=== PATIENT | female | born 1955 | race African-American/Black ===

== ENCOUNTER 2023-05-07 03:06 | Day surgery (SDC) | payer MEDICARE, MEDICAID, SELFPAY ==
[2023-04-23 09:40] VITALS: BMI 31.1
--- NOTE | 2023-04-23 11:38 | PC.NURSE ---
Report to the Outpatient Waiting Room, entrance under the green pavilion located off [facility], at time _8:30AM on date __04/29/23 . Planned Procedure Time: __10:30AM . Time changes happen often and if your time is changed the preop area will call you the afternoon before. - You and your visitor will be asked to self-screen and do not enter if you have any COVID symptoms. - A mask is optional within the hospital at this time. Patients may have clear liquids (water, carbonated beverages, clear teas, apple juice) until 3 hours prior to surgery with a maximum of 20 ounces. - No food from midnight until time of surgery Take the following medications with a SIP of water the morning of surgery: ___SYMBICORT INHALER, AMLODIPINE, CARVEDILOL, GABAPENTIN, HYDROCODONE, AND ALBUTEROL INHALER NEEDED DO NOT STOP ANY OF YOUR OTHER PRESCRIPTION MEDICATIONS PRIOR TO SURGERY ?EXCEPT THE FOLLOWING Medications to discontinue per physician ___HOLD ALL VITAMINS/SUPPLEMENTS 3 DAYS PRE-OP PER ANESTHESIA____ Date to take last dose__04/25/23 Please no make-up, nail setswana, hairspray, perfume, deodorant, or body powder the day of surgery. No jewelry (including any body piercings) or valuables the day of surgery, leave them at home. Please take a shower or bath the night before, or the morning of, surgery with an antibacterial soap. Wear comfortable, loose fitting clothing. Children are encouraged to wear pajamas. - Jewelry must be removed prior to entering the operating room. Rings and piercings that are not removed may be cut off. - The hospital will not accept responsibility for valuables. - Please leave all valuables, including medications, at home the day of surgery. If you are going home after surgery, a licensed steam train driver must drive you home. - NO public transportation without another adult if you receive anesthesia. - We recommend that an adult stay with you for 24 hours following discharge. - We also recommend that you do not drive, make important decision, drink alcoholic beverages, or take any drugs that were not prescribed by your health care provider for at least 24 hours after your discharge time. Follow any additional instructions given to you from your surgeon. If you or anyone in your household have experienced Covid symptoms in the past week, please notify your surgeon or the nurse liaison at the phone number below for possible testing. Telephone instructions given to ___PATIENT and asked if any additional questions and then verbalized understanding. Patient advised to call surgeon office or pre surgery nurse liaison [phone] if any additional questions.
--- NOTE | 2023-05-02 08:21 | PC.NURSE ---
Report to the Outpatient Waiting Room, entrance under the green pavilion located off [facility], at time _1300 on date __05/07/23 . Planned Procedure Time: _1500 . Time changes happen often and if your time is changed the preop area will call you the afternoon before. - You and your visitor will be asked to self-screen and do not enter if you have any COVID symptoms. - A mask is optional within the hospital at this time. Patients may have clear liquids (water, carbonated beverages, clear teas, apple juice) until 3 hours prior to surgery with a maximum of 20 ounces. - No food from midnight until time of surgery - Infants may have breast milk until 4 hours before surgery, infant formula 6 hours prior to surgery. - Children will be allowed to drink immediately following surgery. If applicable, please bring a bottle or sippy cup to assist with drinking. Juice, water, soda, and popsicles are readily available. For infants on formula, please bring formula the day of surgery. Pacifiers are allowed. Take the following medications with a SIP of water the morning of surgery: ___AMLODIPINE,SYMBICORT INHALER,CARVEDILOL,GABAPENTIN, HYDROCODONE IF NEEDED,AND ALBUTEROL INHALER IF NEEDED DO NOT STOP ANY OF YOUR OTHER PRESCRIPTION MEDICATIONS PRIOR TO SURGERY ?EXCEPT THE FOLLOWING Medications to discontinue per physician __HOLD ALL VITAMINS/SUPPLEMENTS 3 DAYS PRE OP.LAST DOSE 05/03/23 Please no make-up, nail belarusian, hairspray, perfume, deodorant, or body powder the day of surgery. No jewelry (including any body piercings) or valuables the day of surgery, leave them at home. Please take a shower or bath the night before, or the morning of, surgery with an antibacterial soap. Wear comfortable, loose fitting clothing. Children are encouraged to wear pajamas. - Jewelry must be removed prior to entering the operating room. Rings and piercings that are not removed may be cut off. - The hospital will not accept responsibility for valuables. - Please leave all valuables, including medications, at home the day of surgery. If you are going home after surgery, a licensed truck driver flatbed must drive you home. - NO public transportation without another adult if you receive anesthesia. - We recommend that an adult stay with you for 24 hours following discharge. - We also recommend that you do not drive, make important decision, drink alcoholic beverages, or take any drugs that were not prescribed by your health care provider for at least 24 hours after your discharge time. For Pediatric surgeries, we recommend two adults accompany the child home. Follow any additional instructions given to you from your surgeon. If you or anyone in your household have experienced Covid symptoms in the past week, please notify your surgeon or the nurse liaison at the phone number below for possible testing. Telephone instructions given to _PATIENT and asked if any additional questions and then verbalized understanding. Patient advised to call surgeon office or pre surgery nurse liaison [phone] if any additional questions.
--- NOTE | 2023-05-02 08:23 | PC.NURSE ---
PT STATES NO CHANGE IN HEALTH HX SINCE LAST INTERVIEW ON 04/23/23
--- NOTE | ~2023-05-07 | XR_ITS ---
EXAMINATION: XR chest port-a-cath/central DATE: 05/07/2023 16:55 INDICATION: Port catheter placement TECHNIQUE: frontal view of the chest was obtained. COMPARISON: Chest CT dated 08/11/2019 FINDINGS: Right subclavian central venous port catheter with distal tip at the superior cavoatrial junction. In creased interstitial pattern in the bilateral lower lung zones. No pleural effusion or pneumothorax. Cardiomegaly. IMPRESSION: 1. Right subclavian central venous port catheter tip at the superior cavoatrial junction. 2. Cardiomegaly with increased interstitial pattern in the bilateral lower lung zones and would favor congestive heart failure related mild pulmonary edema over pneumonia. Reviewed, dictated and finalized at location A. IMPRESSION: 1. Right subclavian central venous port catheter tip at the superior cavoatrial junction. 2. Cardiomegaly with increased interstitial pattern in the bilateral lower lung zones and would favor congestive heart failure related mild pulmonary edema ov er pneumonia.
--- NOTE | ~2023-05-07 | XR_ITS ---
Portacatheter insertion TECHNIQUE: Fluoroscopy used during insertion of portacatheter performed by [Bernabe Munguia MD] o n 05/07/2023. 26 seconds of fluoroscopy. with 0 images captured. FINDINGS: Correlate with procedure note. IMPRESSION: Fluoroscopy used during insertion of portacatheter. No fluoroscopic images obtained. Reviewed, dictated and finalized at location L.
[2023-05-07 13:55] VITALS: BP 132/69; PULSE 71; RESP 18; TEMP 36.9; O2SAT 100
[2023-05-07 14:36] LABS: Basophils Percent Auto 0.3 % (0.2-1.2); Eosinophils Absolute Auto 0.2 K/mm3 (0-0.3); Eosinophils Percent Auto 3.9 % (0-4.4); Hemoglobin 9.8 g/dL (12.0-15.0); Immature Granulocyte Absolute 0.06 K/mm3 (0.00-0.031); Lymphocytes Absolute Auto 1.24 K/mm3 (0.9-3.2); Lymphocytes Percent Auto 20.2 % (18.3-44.2); Mean Corpuscular HGB Conc 32.7 g/dl (32-36); Mean Corpuscular Hemoglobin 28.4 pg (26-34); Mean Platelet Volume 10.3 fl (7.4-10.4); Monocytes Absolute Auto 0.6 K/mm3 (0.1-0.6); Monocytes Percent Auto 10.3 % (2.6-8.5); Neutrophils Percent Auto 64.3 % (45.5-73.1); Platelet Count Result 203 k/mm3 (150-375); Red Blood Count 3.45 M/mm3 (4.2-5.4); Red Cell Distribution Width 18.5 % (11.5-14.5); White Blood Count 6.1 K/mm3 (4.5-10.0)
[2023-05-07 14:47] LABS: Prothrombin Time 23.9 Seconds (11.1-14.7)
[2023-05-07 14:48] LABS: Partial Thromboplastin Time 23.1 SECONDS (22.3-36.8)
--- NOTE | 2023-05-07 15:32 | WPDANESEPPF ---
Anes - Initial Pre Proc Eval Procedure: Operation Date: 05/07/23 15:00 Proposed Procedures p Insertion Juan Cath - Bernabe Munguia MD Date/Time: 05/07/23 15:32 Surgeon: Bernabe Munguia MD Pre Op Diagnosis: multiple myeloma Patient Data Age: 68 Gender: F Height: 1.65 m Weight: 90.5 kg Last Vital Signs Temp 36.9 C 05/07/23 13:55 Pulse 71 05/07/23 13:55 Resp 18 05/07/23 13:55 BP 132/69 05/07/23 13:55 Pulse Ox 100 05/07/23 13:55 O2 Del Method Room Air 05/07/23 13:55 Allergies Allergy/AdvReac Type Severity Reaction Status Date / Time No Known Allergies Allergy Verified 05/07/23 14:04 Home Medications Medication Instructions Recorded Confirmed Type albuterol sulfate 90 mcg/actuation 2 puff inhalation Q4-5H PRN Dyspnea 04/23/23 05/07/23 History aerosol inhaler amlodipine 10 mg tablet 10 mg PO QAM 04/23/23 05/07/23 History baclofen 10 mg tablet 10 mg PO TID PRN Muscle Spasm 04/23/23 05/07/23 History budesonide-formoterol HFA 160 2 puff inhalation Q12H 04/23/23 05/07/23 History mcg-4.5 mcg/actuation aerosol inhaler (Symbicort) carvedilol 3.125 mg tablet 3.015 mg PO BID 04/23/23 05/07/23 History ferrous sulfate 325 mg (65 mg 325 mg PO DAILY 04/23/23 05/07/23 History iron) tablet (FeroSul) gabapentin 300 mg capsule 600 mg PO TID 04/23/23 05/07/23 History hydrocodone 5 mg-acetaminophen 325 1 tablet PO Q4-6H PRN Pain 04/23/23 05/07/23 History mg tablet hydroxyzine HCl 25 mg tablet 25 mg PO TID 04/23/23 05/07/23 History lenalidomide 25 mg capsule 25 mg PO DAILY 04/23/23 05/07/23 History (Revlimid) omeprazole 40 mg capsule,delayed 40 mg PO DAILY 04/23/23 05/07/23 History release sertraline 100 mg tablet 100 mg PO HS 04/23/23 05/07/23 History Laboratory Tests 05/07/23 14:18 WBC 6.1 K/mm3 (4.5-10.0) RBC 3.45 L M/mm3 (4.2-5.4) Hgb 9.8 L g/dL (12.0-15.0) Hct 30.0 L % (37.0-47.0) MCV 87.0 fl (80-100) MCH 28.4 pg (26-34) MCHC 32.7 g/dl (32-36) RDW 18.5 H % (11.5-14.5) Plt Count 203 k/mm3 (150-375) MPV 10.3 fl (7.4-10.4) Immature Gran % (Auto) 1.0 H % (0-0.5) Neut % (Auto) 64.3 % (45.5-73.1) Lymph % (Auto) 20.2 % (18.3-44.2) Shasta % (Auto) 10.3 H % (2.6-8.5) Eos % (Auto) 3.9 % (0-4.4) Baso % (Auto) 0.3 % (0.2-1.2) Lymph # (Auto) 1.24 K/mm3 (0.9-3.2) Shasta # (Auto) 0.6 K/mm3 (0.1-0.6) Eos # (Auto) 0.2 K/mm3 (0-0.3) Baso # (Auto) 0.0 K/mm3 (0.0-0.1) Abs Immat Gran (auto) 0.06 H K/mm3 (0.00-0.031) Absolute Neuts (auto) 4.0 K/mm3 (1.3-6.7) Absolute Nucleated RBC 0.0 K/mm3 (0.0-0.012) Nucleated RBC % 0.0 % (0.0-0.2) PT 23.9 H Seconds (11.1-14.7) INR 2.0 APTT 23.1 SECONDS (22.3-36.8) Patient hx anesthesia problems: none Family hx anesthesia problems: none Results Review: All pre-operative results and documents have been reviewed as part of the pre-operative evaluation. [facility] Past Medical History Medical History (Updated 05/07/23 @ 15:33 by Jomar Medina DO) COPD (chronic obstructive pulmonary disease) GERD (gastroesophageal reflux disease) History of heart attack Hyperlipidemia Hypertension Multiple myeloma ARLENE (obstructive sleep apnea) CPAP Social History Social History Smoking packs per day: 0.5 Smoking cigarettes per day: 10.0 Years smoked: 43 Smoking pack-years: 21.50 Smoking status: Former smoker Tobacco type: cigarettes Smoking end date: 01/28/23 Substance use: never Living arrangements: with family Additional living arrangements comments: SON Spiritual care concerns: No Anes - Eval Final PreProcedure Day of Procedure 05/07/23 15:32 Patient weight: obese Heart: regular rate and rhythm Lungs: clear to auscultation Airway: Mallampati scale class II Neurological: alert and oriented Last oral intake: >/= 8 hours ASA classification: III
--- NOTE | 2023-05-07 15:42 | PM.IMHP ---
H&P: HPI History of Present Illness Date/Time: 05/07/23 15:42 Chief Complaint: Need for port placement PMFSH Past Medical History Medical History COPD (chronic obstructive pulmonary disease) GERD (gastroesophageal reflux disease) History of heart attack Hyperlipidemia Hypertension Multiple myeloma ARLENE (obstructive sleep apnea) CPAP Social History Social History Smoking packs per day: 0.5 Smoking cigarettes per day: 10.0 Years smoked: 43 Smoking pack-years: 21.50 Smoking status: Former smoker Tobacco type: cigarettes Smoking end date: 01/28/23 Substance use: never Living arrangements: with family Additional living arrangements comments: SON Spiritual care concerns: No Meds Home Medications and Allergies Home Medications Medication Instructions Recorded Confirmed Type albuterol sulfate 90 mcg/actuation 2 puff inhalation Q4-5H PRN Dyspnea 04/23/23 05/07/23 History aerosol inhaler amlodipine 10 mg tablet 10 mg PO QAM 04/23/23 05/07/23 History baclofen 10 mg tablet 10 mg PO TID PRN Muscle Spasm 04/23/23 05/07/23 History budesonide-formoterol HFA 160 2 puff inhalation Q12H 04/23/23 05/07/23 History mcg-4.5 mcg/actuation aerosol inhaler (Symbicort) carvedilol 3.125 mg tablet 3.015 mg PO BID 04/23/23 05/07/23 History ferrous sulfate 325 mg (65 mg 325 mg PO DAILY 04/23/23 05/07/23 History iron) tablet (FeroSul) gabapentin 300 mg capsule 600 mg PO TID 04/23/23 05/07/23 History hydrocodone 5 mg-acetaminophen 325 1 tablet PO Q4-6H PRN Pain 04/23/23 05/07/23 History mg tablet hydroxyzine HCl 25 mg tablet 25 mg PO TID 04/23/23 05/07/23 History lenalidomide 25 mg capsule 25 mg PO DAILY 04/23/23 05/07/23 History (Revlimid) omeprazole 40 mg capsule,delayed 40 mg PO DAILY 04/23/23 05/07/23 History release sertraline 100 mg tablet 100 mg PO HS 04/23/23 05/07/23 History Allergies Allergy/AdvReac Type Severity Reaction Status Date / Time No Known Allergies Allergy Verified 05/07/23 14:04 Vital Signs Vital Signs - 24 hr 05/07/23 13:55 Temperature 36.9 C Pulse Rate 71 Respiratory Rate 18 Blood Pressure 132/69 Pulse Oximetry 100 Oxygen Delivery Room Air H&P: Results Labs Labs: Short CBC 05/07/23 Range/Units 14:18 WBC 6.1 (4.5-10.0) K/mm3 Hgb 9.8 L (12.0-15.0) g/dL Hct 30.0 L (37.0-47.0) % Plt Count 203 (150-375) k/mm3 Assessment and Plan Assessment and plan (1) Multiple myeloma in relapse: Code(s): C90.02 - Multiple myeloma in relapse Status: Acute Assessment and Plan: Pt presents of portacatheter placement. Will proceed to OR for port placement today. Risks of bleeding and need for blood transfusion and iatrogenic pneumothorax needing chest tube placement discussed with pt and she wishes to proceed.
--- NOTE | 2023-05-07 15:46 | WPDHPUPDATE1 ---
History and Physical Update Update Date/Time: 05/07/23 15:46 History and Physical has been reviewed, including an updated exam of the patient. There are NO changes in the patient's condition. Risks, benefits, and alternatives have been discussed and questions answered. Patient agrees to proceed with procedure.
[2023-05-07] MEDS: ceFAZolin 2 GM/D5W 50 ML 2 GM/50 ML BAG IVPB (16:19)
[2023-05-07 16:43] VITALS: BP 108/59; PULSE 78; RESP 12; O2SAT 91
[2023-05-07] MEDS: LACTATED RINGERS 1,000 ML 30 ML IV CONT (16:43)
[2023-05-07 17:15] VITALS: BP 121/75; PULSE 72; RESP 16; O2SAT 96
--- NOTE | 2023-05-07 17:24 | W.PM.PROC2 ---
Procedure Note - Detailed Date of Procedure 05/07/23 Pre-op Diagnosis multiple myeloma Post-op Diagnosis Same Procedure Performed Placement of right subclavian vein single-lumen port a catheter with intraoperative fluoroscopy. Surgeon Bernabe Munguia MD Property And Equipment Clerk Edna Kuo, [place], [facility] [facility] Anesthesia MAC Indications patient is a 68-year-old female who has multiple myeloma and is set to undergo chemotherapy treatments. She presents now for placement of a taylor catheter to for the chemotherapy treatments. Findings None significant. Description of Procedure After informed consent was obtained patient was brought to the operating room where she was placed supine position and then IV sedation was administered by anesthesia. The bilateral upper anterior neck and chest was then prepped and draped in usual sterile fashion. A time-out was then performed correctly identifying the patient as well as the procedure to be performed. She was given perioperative IV antibiotics. I then anesthetized the area just below the medial 3rd of the right clavicle in the right upper anterior chest. This was done with 0.5% Marcaine mixed with 1% lidocaine in a 50 50 mixture with some epinephrine. With the patient head-down Trendelenburg position and then made a small transverse incision just below the medial 3rd of the right clavicle. Dissection was then carried down through the subcutaneous tissue electrocautery down to the anterior pectoralis fascia. With blunt finger electrocautery dissection I created the subcutaneous port pocket just below the incision. I then proceeded to advance an 18gauge spinal needle the incision just underneath the medial 3rd of the right clavicle to percutaneously cannulate the right subclavian vein on the 1st pass on a difficulty. There was prompt return of dark venous appearing blood. I then advanced the guidewire through the needle into the right subclavian vein subsequently down into the superior vena cava. Intraoperative fluoroscopy was then used to visualize the guidewire which was in the proper position. I then proceeded to advanced a dilator breakaway sheath over the guidewire. The dilator and guidewire were removed leaving the sheath in place. I then advanced the 9.6 Turkmen single-lumen catheter through the sheath into the right subclavian vein and down into the right atrium of the heart. The sheath was then torn away leaving the catheter in place. Once again I utilized intraoperative fluoroscopy to pull back on the catheter until the tip was at the junction of the superior vena cava and the right atrium. I then cut the catheter to the appropriate length the skin level and attached to the Smart Port. The port was then secured in the subcutaneous port pocket in 3 places utilizing 3-0 Prolene suture. I then accessed the port and it bg back blood easily and was flushed with heparinized saline solution. I then closed the incision utilizing interrupted 3-0 Vicryl sutures in the subcutaneous tissues. The skin edges were then approximated utilizing a running subcuticular 4-0 Monocryl suture. Then accessed the port percutaneously and again it bg back blood easily and was flushed with 5000units of IV heparin. The incisions were then cleaned the skin glue was applied. The patient tolerated the procedure well no complications. All sponges, needles, and instrument counts were correct at the end procedure. EBL was _10__cc. The patient was awakened and taken to recovery in stable and satisfactory condition. Implants 9.6 Turkmen single-lumen catheter attached to Smart port right subclavian vein. Estimated Blood Loss -10.0 Drains No Packing No Pathology None sent Complications No immediate complications Condition Stable Disposition PACU [facility] Billing Surgery - Charge Forward: Surgery Billing
== END 2023-05-07 17:43 | disposition home or self-care (01) ==
PROVIDERS: Visit Provider Surgery
PROC: (CPT 36561; principal; 2023-05-07 15:00)
DX: C90.02 Multiple myeloma in relapse (principal); J44.9 Chronic obstructive pulmonary disease, unspecified; I10 Essential (primary) hypertension; E78.5 Hyperlipidemia, unspecified; I25.2 Old myocardial infarction; K21.9 Gastro-esophageal reflux disease without esophagitis; G47.33 Obstructive sleep apnea (adult) (pediatric); Z87.891 Personal history of nicotine dependence; E66.9 Obesity, unspecified; Z68.33 Body mass index [BMI] 33.0-33.9, adult; Z79.51 Long term (current) use of inhaled steroids; Z79.61 Long term (current) use of immunomodulator; Z79.891 Long term (current) use of opiate analgesic
CPT/HCPCS: 36561; 36415; 77001; 85025; 85610; 85730; C1788; J0690; J1644; J2250; J2704; J3010; J7030; J7120

== ENCOUNTER 2023-06-04 16:17 | Outpatient (CLI) | payer MEDICARE, MEDICAID, SELFPAY ==
--- NOTE | ~2023-06-04 | US_ITS ---
US venous doppler [facility] DATE: 06/04/2023 18:26 INDICATION: Left lower extremity swelling TECHNIQUE: Real-time and color flow imaging and Doppler analysis of the veins of the left lower extre mity COMPARISON: None FINDINGS: The left greater saphenous vein is patent. There is spontaneous and phasic flow and normal augmentation and color flow signal and normal compression of the deep veins of the left lower extremi ty. IMPRESSION: No evidence of deep venous thrombosis of left lower extremity Reviewed, dictated and finalized at Location A. Reviewed, dictated and finalized at location A.
== END 2023-06-04 16:18 | disposition home or self-care (01) ==
PROVIDERS: Visit Provider Internal Medicine Hematology & Oncology
DX: M79.89 Other specified soft tissue disorders (principal)
CPT/HCPCS: 93971; 96375; 96401; 96413; 96415; A9270; J1200; J2930; J7040; J9041; J9145

== ENCOUNTER 2023-11-22 20:27 | Emergency (ER) | payer MEDICARE, MEDICAID, SELFPAY ==
--- NOTE | ~2023-11-22 | XR_ITS ---
EXAMINATION: XR chest 2V DATE: 11/22/2023 23:29 INDICATION: Fever. TECHNIQUE: Frontal and lateral views of the chest were obtained. COMPARISON: Chest single view 05/07/2023, chest CT 08/11/2019 FINDINGS: There are airspace opacities in left mid and lower lung zones. No pleural effusion or pneum othorax. The heart size is normal. There is a right subclavian port with tip at superior cavoatrial j unction. There are vertebral body fractures in lumbar spine, likely chronic. IMPRESSION: 1. Airspace opacities in left mid and lower lung zones, consistent with atelectasis versus pneumonia. Reviewed, dictated and finalized at location E. INSPECTOR IMPRESSION: 1. Airspace opacities in left mid and lower lung zones, consistent with atelect asis versus pneumonia.
[2023-11-22 20:42] VITALS: BP 107/83; PULSE 78; RESP 17; TEMP 37.2; O2SAT 95
[2023-11-22 21:36] LABS: Influenza A QL RT-PCR Negative (Negative); Influenza B QL RT-PCR Negative (Negative); RSV RNA, RT-PCR Negative (Negative); SARS-CoV-2 RNA PCR Negative (Negative)
[2023-11-22 23:25] LABS: Basophils Absolute Auto 0.1 K/mm3 (0.0-0.1); Basophils Percent Auto 0.4 % (0.2-1.2); Eosinophils Absolute Auto 0.1 K/mm3 (0-0.3); Eosinophils Percent Auto 0.3 % (0-4.4); Hematocrit 26.6 % (37.0-47.0); Hemoglobin 9.1 g/dL (12.0-15.0); Immature Granulocyte Absolute 0.15 K/mm3 (0.00-0.031); Immature Granulocyte Percent A 0.7 % (0-0.5); Lymphocytes Absolute Auto 2.77 K/mm3 (0.9-3.2); Mean Corpuscular HGB Conc 34.2 g/dl (32-36); Mean Corpuscular Hemoglobin 29.4 pg (26-34); Mean Corpuscular Volume 85.8 fl (80-100); Mean Platelet Volume 9.6 fl (7.4-10.4); Monocytes Absolute Auto 2.9 K/mm3 (0.1-0.6); Monocytes Percent Auto 12.6 % (2.6-8.5); Neutrophils Absolute Auto 17.1 K/mm3 (1.3-6.7); Platelet Count Result 215 k/mm3 (150-375); White Blood Count 23.1 K/mm3 (4.5-10.0)
[2023-11-22 23:36] LABS: INR 1.9; Partial Thromboplastin Time 27.5 SECONDS (22.3-36.8); Prothrombin Time 22.7 Seconds (11.1-14.7)
[2023-11-22 23:37] LABS: Alanine Aminotransferase 17 U/L (6-35); Albumin Level 3.7 g/dL (3.5-5.1); Alkaline Phosphatase 83 U/L (38-126); Anion Gap 5 mmol/L (8-16); Aspartate Amino Transferase 21 U/L (14-36); Bilirubin,Total 0.5 mg/dL (0.2-1.3); Blood Urea Nitrogen 12 mg/dL (7-17); CRP 4.5 mg/dL (<1.0); Calcium 8.5 mg/dL (8.4-10.2); Carbon Dioxide 24 mmol/L (22-30); Chloride 103 mmol/L (98-107); Estimated CRCL calculation 71 ml/min; Estimated Glomerular Filt Rate > 60; Glucose 133 mg/dL (65-110); Potassium 2.9 mmol/L (3.4-5.0); Sodium 132 mmol/L (137-145)
[2023-11-23] VITALS (16 sets, daily range): BP systolic 102–128; BP diastolic 65–80; PULSE 89–109; RESP 15–20; TEMP 36.6–36.8; O2SAT 97–100
[2023-11-23 00:25] LABS: Lactic Acid Reflex 1.1 mmol/L (0.7-2.0)
--- NOTE | 2023-11-23 00:25 | ED.URI ---
HPI - URI/Sore Throat General Chief Complaint: Upper Respiratory Infection <Tiera Moura PA-C - Last Filed: 11/23/23 17:21> Stated Complaint: chills, fever, body aches, bone marrow transplant <Tiera Moura PA-C - Last Filed: 11/23/23 17:21> Time Seen by Provider: 11/22/23 22:49 <JANA Miguel Last Filed: 11/23/23 17:21> Source: patient <JANA Miguel Last Filed: 11/23/23 17:21> Mode of arrival: ambulatory <JANA Miguel Last Filed: 11/23/23 17:21> Limitations: no limitations <JANA Miguel Last Filed: 11/23/23 17:21> History of Present Illness HPI Narrative: This is a 68 year old female that presents to the ER for fevers. Reports associated sore throat, cough, congestion and shortness of breath. Denies chest pain, abdominal pain, vomiting, dysuria, or hematuria. <JANA Miguel Last Filed: 11/23/23 17:21> Related Data Home Medications: Home Medications Medication Instructions Recorded Confirmed albuterol sulfate 90 mcg/actuation 2 puff inhalation Q4-5H PRN Dyspnea 04/23/23 09/17/23 aerosol inhaler amlodipine 10 mg tablet 10 mg PO QAM 04/23/23 09/17/23 baclofen 10 mg tablet 10 mg PO TID PRN Muscle Spasm 04/23/23 09/17/23 budesonide-formoterol HFA 160 2 puff inhalation Q12H 04/23/23 09/17/23 mcg-4.5 mcg/actuation aerosol inhaler (Symbicort) carvedilol 3.125 mg tablet 3.015 mg PO BID 04/23/23 09/17/23 ferrous sulfate 325 mg (65 mg 325 mg PO DAILY 04/23/23 09/17/23 iron) tablet (FeroSul) gabapentin 300 mg capsule 600 mg PO TID 04/23/23 09/17/23 hydroxyzine HCl 25 mg tablet 25 mg PO TID 04/23/23 09/17/23 lenalidomide 25 mg capsule 25 mg PO DAILY 04/23/23 09/17/23 (Revlimid) omeprazole 40 mg capsule,delayed 40 mg PO DAILY 04/23/23 09/17/23 release sertraline 100 mg tablet 100 mg PO HS 04/23/23 09/17/23 dexamethasone 4 mg tablet 40 mg PO WEEKLY 06/04/23 09/17/23 hydrocodone 10 mg-acetaminophen 1 tablet PO Q6H PRN Pain 08/06/23 09/17/23 325 mg tablet <Tiera Moura PA-C - Last Filed: 11/23/23 17:21> Allergies/Adverse Reactions: Allergies Allergy/AdvReac Type Severity Reaction Status Date / Time No Known Allergies Allergy Verified 09/17/23 12:22 <Tiera Moura PA-C - Last Filed: 11/23/23 17:21> Review of Systems Review of Systems: CONSTITUTIONAL: Reports fever, chills ENT: Reports rhinorrhea, congestion, sore throat CARDIOVASCULAR: Denies chest pain, or edema. RESPIRATORY: Reports cough and dyspnea. GASTROINTESTINAL: Denies abdominal pain, nausea, vomiting GENITOURINARY: Denies dysuria <Tiera Moura PA-C - Last Filed: 11/23/23 17:21> All systems reviewed & are unremarkable except as noted in HPI and below <Tiera Moura PA-C - Last Filed: 11/23/23 17:21> [facility] Past Medical History Medical History: Medical History COPD (chronic obstructive pulmonary disease) GERD (gastroesophageal reflux disease) History of heart attack Hyperlipidemia Hypertension Multiple myeloma ARLENE (obstructive sleep apnea) CPAP <Tiera Moura PA-C - Last Filed: 11/23/23 17:21> Social History Social History: Social History Smoking packs per day: 0.5 Smoking cigarettes per day: 10.0 Years smoked: 43 Smoking pack-years: 21.50 Smoking status: Former smoker Tobacco type: cigarettes Smoking end date: 01/28/23 Substance use: never Living arrangements: with family Additional living arrangements comments: SON Spiritual care concerns: No <Tiera Moura PA-C - Last Filed: 11/23/23 17:21> Exam Narrative: GENERAL: Well-appearing, well-nourished, and in no acute distress. HEAD: Normocephalic, atraumatic. EYES: EOMI. ENT: Nares clear, no rhinorrhea or epistaxis. Mucous membranes moist. Oropharynx without tonsillar hypertrophy exudate or other lesions. Bilat
--- NOTE | 2023-11-23 00:28 | PM.IMHP ---
H&P: HPI History of Present Illness Date/Time: 11/23/23 00:28 [facility] Past Medical History Medical History COPD (chronic obstructive pulmonary disease) GERD (gastroesophageal reflux disease) History of heart attack Hyperlipidemia Hypertension Multiple myeloma ARLENE (obstructive sleep apnea) CPAP Social History Social History Smoking packs per day: 0.5 Smoking cigarettes per day: 10.0 Years smoked: 43 Smoking pack-years: 21.50 Smoking status: Former smoker Tobacco type: cigarettes Smoking end date: 01/28/23 Substance use: never Living arrangements: with family Additional living arrangements comments: SON Spiritual care concerns: No Meds Home Medications and Allergies Home Medications Medication Instructions Recorded Confirmed Type albuterol sulfate 90 mcg/actuation 2 puff inhalation Q4-5H PRN Dyspnea 04/23/23 09/17/23 History aerosol inhaler amlodipine 10 mg tablet 10 mg PO QAM 04/23/23 09/17/23 History baclofen 10 mg tablet 10 mg PO TID PRN Muscle Spasm 04/23/23 09/17/23 History budesonide-formoterol HFA 160 2 puff inhalation Q12H 04/23/23 09/17/23 History mcg-4.5 mcg/actuation aerosol inhaler (Symbicort) carvedilol 3.125 mg tablet 3.015 mg PO BID 04/23/23 09/17/23 History ferrous sulfate 325 mg (65 mg 325 mg PO DAILY 04/23/23 09/17/23 History iron) tablet (FeroSul) gabapentin 300 mg capsule 600 mg PO TID 04/23/23 09/17/23 History hydroxyzine HCl 25 mg tablet 25 mg PO TID 04/23/23 09/17/23 History lenalidomide 25 mg capsule 25 mg PO DAILY 04/23/23 09/17/23 History (Revlimid) omeprazole 40 mg capsule,delayed 40 mg PO DAILY 04/23/23 09/17/23 History release sertraline 100 mg tablet 100 mg PO HS 04/23/23 09/17/23 History dexamethasone 4 mg tablet 40 mg PO WEEKLY 06/04/23 09/17/23 History hydrocodone 10 mg-acetaminophen 1 tablet PO Q6H PRN Pain 08/06/23 09/17/23 History 325 mg tablet Allergies Allergy/AdvReac Type Severity Reaction Status Date / Time No Known Allergies Allergy Verified 09/17/23 12:22 Vital Signs Vital Signs - 24 hr 11/22/23 20:42 Temperature 98.9 F Pulse Rate 78 Respiratory Rate 17 Blood Pressure 107/83 Pulse Oximetry 95 Oxygen Delivery Room Air H&P: Results Labs Labs: Short CBC 11/22/23 Range/Units 23:17 WBC 23.1 H (4.5-10.0) K/mm3 Hgb 9.1 L (12.0-15.0) g/dL Hct 26.6 L (37.0-47.0) % Plt Count 215 (150-375) k/mm3 BMP 11/22/23 23:17 Sodium 132 L Potassium 2.9 L Chloride 103 Carbon Dioxide 24 BUN 12 Creatinine 0.70 Glucose 133 H Calcium 8.5 Liver Function 11/22/23 Range/Units 23:17 Total Bilirubin 0.5 (0.2-1.3) mg/dL AST 21 (14-36) U/L ALT 17 (6-35) U/L Alkaline Phosphatase 83 (38-126) U/L Albumin 3.7 (3.5-5.1) g/dL
--- NOTE | 2023-11-23 00:35 | ECG_ITS ---
Measurements Intervals [place] Rate: 104 P: 38 GA: 141 QRS: -82 QRSD: 136 T: 18 QT: 382 QTc: 503 Interpretive Statements SINUS TACHYCARDIA RIGHT BUNDLE BRANCH BLOCK LEFT ANTERIOR FASCICULAR BLOCK ABNORMAL ECG NO PREVIOUS ECG AVAILABLE FOR COMPARISON Electronically Signed On 11-23-2023 7:35:58 [employer] EVENT by Donald Noble D.O.
[2023-11-23] MEDS: AZITHROMYCIN 500 MG/NS 250 ML 500 MG/250 ML BAG 250 MG IVPB (01:33)
[2023-11-23 01:42] LABS: Magnesium 1.2 mg/dL (1.6-2.3)
[2023-11-23 02:24] LABS: Appearance Urine Cloudy (Clear); Bacteria Urine None Seen /hpf; Bilirubin Urine Negative (Negative); Blood Urine Negative (Negative); Color Urine Yellow (Yellow); Glucose Urine UA Negative (Negative); Ketones Urine Negative (Negative); Leukocyte Esterase Ur 3+ LEU/UL (Negative); Nitrate Urine Negative (Negative); Non Pathogenic Casts 0-2; Protein Urine Negative (Negative); RBC Urine 0-2 /hpf (0-2); Specific Grav Ur 1.009 (1.001-1.035); Squamous Epithelial Cell Urine Few /hpf (Few); Urobilinogen Urine 0.2 mg/dL (<2.0); WBC Urine 51-100 /hpf
[2023-11-23 02:25] LABS: Add Urine Microscopic? YES
[2023-11-23] MEDS: POTASSIUM CHLORIDE INJ 40 MEQ in SODIUM CHLORIDE 0.9% IV 500 ML 130 MEQ IVPB (03:00)
[2023-11-23] MEDS: CENTRAL LINE FLUSH 10 ML IV PUSH ×2 (06:33→15:50)
[2023-11-23] MEDS: MAGNESIUM SULF 2 GM/WATER 50ML 2 GM/50 ML BAG IVPB (07:05)
--- NOTE | 2023-11-23 07:15 | PC.NURSE ---
Upon pt arrival to ED room pt expressed that she wished to have her port-a-cath accessed instead of peripheral IV access. Pt was asked at 0545 if an IV could be placed to be able to administer more than one medication at a time. Pt agreed and Dr. Culp placed an ultrasound IV in the left forearm.
[2023-11-23] MEDS: CEFEPIME 2 GM/NS 50 ML 2 GM/50 ML BAG IVPB ×2 (08:29→15:49)
[2023-11-23] MEDS: HEPARIN SODIUM LOCK FLUSH 500 UNITS/5 ML SYRINGE IV PUSH (08:31)
--- NOTE | 2023-11-23 08:47 | PC.NURSE ---
Ruthann from [place] called for update. No beds available today and most likely not tomorrow either
[2023-11-23 15:53] LABS: Basophils Absolute Auto 0.1 K/mm3 (0.0-0.1); Basophils Percent Auto 0.4 % (0.2-1.2); Eosinophils Absolute Auto 0.1 K/mm3 (0-0.3); Eosinophils Percent Auto 0.7 % (0-4.4); Hematocrit 26.9 % (37.0-47.0); Hemoglobin 9.2 g/dL (12.0-15.0); Immature Granulocyte Percent A 0.6 % (0-0.5); Lymphocytes Absolute Auto 1.92 K/mm3 (0.9-3.2); Lymphocytes Percent Auto 10.6 % (18.3-44.2); Mean Corpuscular HGB Conc 34.2 g/dl (32-36); Mean Corpuscular Hemoglobin 29.5 pg (26-34); Mean Corpuscular Volume 86.2 fl (80-100); Mean Platelet Volume 9.7 fl (7.4-10.4); Monocytes Absolute Auto 1.8 K/mm3 (0.1-0.6); Monocytes Percent Auto 10.1 % (2.6-8.5); Neutrophils Percent Auto 77.6 % (45.5-73.1); Platelet Count Result 224 k/mm3 (150-375); Red Blood Count 3.12 M/mm3 (4.2-5.4); Red Cell Distribution Width 16.3 % (11.5-14.5); White Blood Count 18.1 K/mm3 (4.5-10.0)
[2023-11-23 16:06] LABS: Alanine Aminotransferase 15 U/L (6-35); Albumin Level 3.7 g/dL (3.5-5.1); Alkaline Phosphatase 85 U/L (38-126); Anion Gap 4 mmol/L (8-16); Aspartate Amino Transferase 20 U/L (14-36); Bilirubin,Total 0.4 mg/dL (0.2-1.3); Blood Urea Nitrogen 10 mg/dL (7-17); Calcium 8.7 mg/dL (8.4-10.2); Carbon Dioxide 25 mmol/L (22-30); Chloride 108 mmol/L (98-107); Estimated CRCL calculation 81 ml/min; Estimated Glomerular Filt Rate > 60; Glucose 105 mg/dL (65-110); Potassium 3.5 mmol/L (3.4-5.0); Sodium 137 mmol/L (137-145)
--- NOTE | 2023-11-23 17:03 | PC.NURSE ---
ordered dinner tray at 1700
[2023-11-23 17:05] LABS: Magnesium 2.4 mg/dL (1.6-2.3)
[2023-11-23 17:25] LABS: CRP 14.4 mg/dL (<1.0)
== END 2023-11-23 21:26 | disposition short-term general hospital (02) ==
PROVIDERS: Emergency Medicine; Physician Assistant; Emergency Provider Emergency Medicine
DX: J18.9 Pneumonia, unspecified organism (principal); E87.6 Hypokalemia; E83.42 Hypomagnesemia; Z20.822 Contact with and (suspected) exposure to COVID-19; C90.00 Multiple myeloma not having achieved remission; Z94.81 Bone marrow transplant status; J44.9 Chronic obstructive pulmonary disease, unspecified; I25.2 Old myocardial infarction; I10 Essential (primary) hypertension; E78.5 Hyperlipidemia, unspecified; G47.33 Obstructive sleep apnea (adult) (pediatric); K21.9 Gastro-esophageal reflux disease without esophagitis; Z87.891 Personal history of nicotine dependence; R00.0 Tachycardia, unspecified; I45.2 Bifascicular block
CPT/HCPCS: 36415; 71046; 80053; 81001; 83605; 83735; 85025; 85610; 85730; 86140; 87040; 87086; 87088; 87637; 93005; 96361; 96365; 96366; 96367; 99285; J0456; J0692; J0696; J3475; J3480; J7040

== ENCOUNTER 2025-05-19 13:48 | Emergency (ER) | payer MEDICARE, MEDICAID, SELFPAY ==
[2025-05-19] VITALS (13 sets, daily range): BP systolic 121–135; BP diastolic 48–82; PULSE 55–67; RESP 12–21; TEMP 36.7; O2SAT 96–100
--- NOTE | ~2025-05-19 | XR_ITS ---
EXAMINATION: XR chest 2V DATE: 05/19/2025 14:37 INDICATION: Shortness of breath TECHNIQUE: PA and lateral views of the chest were obtained. COMPARISON: Chest radiograph dated 11/22/2023 FINDINGS: Unchanged elevation the left hemidiaphragm. There is interstitial and mild airspace opacity left lower lung zone. Right lung remains clear. No pleural effusion or pneumothorax. Heart size is normal. Tortuous thoracic aorta. Right subclavian central venous port catheter with distal tip at the caudal superior vena cava. Mild lumbar levoscoliosis with chronic compression fractures at L1 and L2. IMPRESSION: 1. Mild opacities in the left lower lung zone which could represent atelectasis, pneumonia or asymmetric mild pulmonary edema. Reviewed, dictated and finalized at location A. IMPRESSION: 1. Mild opacities in the left lower lung zone which could represent atelectasis , pneumonia or asymmetric mild pulmonary edema.
--- NOTE | 2025-05-19 13:52 | ECG_ITS ---
Test Date: 2025-05-19 13:57:50 Measurements Intervals [place] Rate: 59 P: 47 ID: [id number] QRS: -53 QRSD: 135 T: 36 QT: 477 QTc: 474 Interpretive Statements SINUS BRADYCARDIA RIGHT BUNDLE BRANCH BLOCK [120+ ms QRS DURATION, UPRIGHT V1, 40+ ms S IN I/aVL/V4/V5/V6] LEFT ANTERIOR FASCICULAR BLOCK [QRS AXIS <= -45, QR IN I, RS IN II] ABNORMAL ECG No previous ECG available for comparison Electronically Signed On 05-19-2025 15:42:11 CDT by Rusty Curtis M.D.
[2025-05-19 14:14] LABS: Hematocrit 31.8 % (37.0-47.0); Hemoglobin 10.9 g/dL (12.0-15.0); Immature Granulocyte Percent A 1.5 % (0-0.5); Lymphocytes Absolute Auto 1.88 K/mm3 (0.9-3.2); Mean Corpuscular HGB Conc 34.3 g/dl (32-36); Mean Corpuscular Hemoglobin 31.0 pg (26-34); Mean Corpuscular Volume 90.3 fl (80-100); Nucleated Red Blood Cells Absolute Auto 0.000 K/mm3 (0.0-0.012); Nucleated Red Blood Cells Perc 0.0 % (0.0-0.2); Platelet Count Result 306 k/mm3 (150-375); Red Blood Count 3.52 M/mm3 (4.2-5.4); White Blood Count 6.5 K/mm3 (4.5-10.0)
[2025-05-19 14:24] LABS: Alanine Aminotransferase 65 U/L (6-35); Albumin Level 4.3 g/dL (3.5-5.1); Alkaline Phosphatase 149 U/L (38-126); Anion Gap 11 mmol/L (4-12); Aspartate Amino Transferase 33 U/L (14-36); Bilirubin,Total 0.3 mg/dL (0.2-1.3); Blood Urea Nitrogen 16 mg/dL (7-17); Calcium 9.3 mg/dL (8.4-10.2); Carbon Dioxide 22 mmol/L (22-30); Chloride 105 mmol/L (98-107); Estimated Glomerular Filt Rate > 60; Glucose 91 mg/dL (65-110); Potassium 4.1 mmol/L (3.4-5.0); Sodium 138 mmol/L (137-145); Total Protein 8.3 g/dL (6.3-8.2)
[2025-05-19 14:28] LABS: INR 2.0; Prothrombin Time 22.0 Seconds (11.1-14.7)
[2025-05-19 14:29] LABS: Partial Thromboplastin Time 29.5 Seconds (22.3-36.8)
[2025-05-19 14:36] LABS: NT Pro B Type Natriuretic Pept 140 pg/mL (19.9-100); Troponin I < 0.012 ng/mL (0.000-0.034)
--- OUTSIDE RECORDS SUMMARY | 2025-05-19 15:05 | XMS_ITS | Clinical Summary ---
Author Organization [facility] Address [facility] [place] [address] Care Team Providers Care Extrusion Die Repair Manager Name Role Phone RiazJeanette JOSELINE Primary Care Provider [phone] Edwin Feldman MD Unavailable [phone] Allergies No known active allergies Medications amLODIPine (NORVASC) 10 mg tabletIndications: Multiple myeloma not having achieved remission (HCC) Take 1 tablet (10 mg total) by mouth daily Active baclofen (LIORESAL) 10 mg tabletIndications: Multiple myeloma not having achieved remission (HCC) Take 1 tablet (10 mg total) by mouth 3 (three) times a day Active budesonide-formote roL (SYMBICORT) 160-4.5 mcg/actuation inhalerIndications :Multiple myeloma not having achieved remission (HCC) Inhale 2 puffs daily Active docusate sodium (COLACE) 100 mg capsuleIndications :Multiple myeloma not having achieved remission (HCC) Take 1 capsule (100 mg total) by mouth 3 (three) times a day as needed 02/23/20 23 Active gabapentin (NEURONTIN) 300 mg capsuleIndications :Multiple myeloma not having achieved remission (HCC) Take 2 capsules (600 mg total) by mouth 3 (three) times a day Active HYDROcodone-acetam inophen (NORCO) 10-325 mg per tabletIndications: Multiple myeloma not having achieved remission (HCC) Take 1 tablet by mouth every 4 (four) hours as needed 08/06/20 23 Active hydrOXYzine (ATARAX) 25 mg tabletIndications: Multiple myeloma not having achieved remission (HCC) Take 1 tablet (25 mg total) by mouth 3 (three) times a day as needed 07/12/20 23 Active meclizine (ANTIVERT) 25 mg tabletIndications: Multiple myeloma not having achieved remission (HCC) Take 1 tablet (25 mg total) by mouth 3 (three) times a day as needed Active ondansetron ODT (ZOFRAN-ODT) 8 mg disintegrating tabletIndications: Multiple myeloma not having achieved remission (HCC) Dissolve 1 tablet on top of tongue then swallow with saliva every 8 hours as needed for nausea or vomiting 05/01/20 23 Active sertraline (ZOLOFT) 100 mg tabletIndications: Multiple myeloma not having achieved remission (HCC) Take 1 tablet (100 mg total) by mouth daily Active calcium carbonate (TUMS) 500 mg (200 mg elemental calcium) chewable tablet Take 1 tablet/chew tab (500 mg total) by mouth 3 (three) times a day as needed for indigestion or heartburn 11/04/[address] (PROTONIX) 40 mg EC tabletIndications: Treatment of Non-Bleeding Gastric Disorder Take 1 tablet (40 mg total) by mouth 2 (two) times a day 60 tablet 1 11/04/19 24 Active carvediloL (COREG) 12.5 mg tablet Take 1 tablet (12.5 mg total) by mouth 2 (two) times a day with meals 11/25/19 24 Active FeroSuL 325 mg (65 mg iron) tabletIndications: Multiple myeloma not having achieved remission (HCC) Take 1 tablet (325 mg total) by mouth daily with breakfast 30 tablet 11/25/19 24 Active albuterol HFA (PROVENTIL HFA,VENTOLIN HFA,PROAIR HFA) 90 mcg/actuation inhalerIndications :Multiple myeloma not having achieved remission (HCC) Inhale 2 puffs every 6 (six) hours as needed for shortness of breath 1 each 11/25/19 24 Active cholecalciferol (VITAMIN D-3) 2000 unit capsuleIndications :Multiple myeloma in remission (HCC) Take 1 capsule (2,000 Units total) by mouth daily 11/14/19 24 Active furosemide (LASIX) 20 mg tabletIndications: Multiple myeloma in remission (HCC) Take 1 tablet (20 mg total) by mouth daily As needed. 30 tablet 5 12/03/19 24 Active traZODone (DESYREL) 50 mg tablet Take 1 tablet (50 mg total) by mouth nightly at bedtime 01/20/20 24 Active Active Problems Patient Care Coordination No te Formatting of this note is d ifferent from the original. BMT Inpatient Care Coordination Overview Diagnosis MM Floor 9800 Treatment Plan Reason for Admission Auto Transplant/IEC Planning BMT/IEC Plan Melph Auto 10/16/2023 HLA typing/IDMs [] Insurance Approval [] Discharge Planning Anticipated Discharge Date 11/24 Patient Education Completed [x] Upcoming appts Issue to be Resolved Before Discharge +cx cryo bag 1= IV abx through 11/04 Discharge Disposition Requests Sent to Case Management, Pharmacy PA Team, or Medical Assistants Post-Discharge Follow-Up Living Situation/Distance from [facility]= 1hr Caregiver son Lab/Transfusion Frequency Venous Access & Care Port Local Oncologist Contact Phone: Fax: Post-Discharge Office Visit (H30) RV 12/02/22 Miscellaneous Notes: 11/24 notified christoph that patient will need IVIG in near future Problem Noted Date Diagnosed Date Abnormal urinalysis 11/24/2023 Assessment & Plan (11/26/2023 6:23 AM CDT): UA positive for 51-100 WBCs, 0-2 RBCs, 3+ leukocyte esterase No urinary complaints IV antibiotics as above, follow urine cultures: OSH cultures insignificant growth Assessment & Plan (11/24/2023 4:56 AM CDT): UA positive for 51-100 WBCs, 0-2 RBCs, 3+ leukocyte esterase No urinary complaints IV antibiotics as above, follow urine cultures Community acquired pneumonia 11/23/2023 Assessment & Plan (11/26/2023 6:22 AM CDT): Presented to outside hospital with sore throat and cough for 2 days and fever, chills and body aches for 1 day. Found to have leukocytosis on labs and evidence of airspace opacities in the left mid and lower lung zones on chest x-ray concerning for pneumonia. Respiratory pathogen panel negative MRSA PCR screen, urinary Legionella antigen, blood cultures(hard stick and unable to obtain peripheral blood cultures) Continue IV antibiotics-cefepime 2 g IV q.8 hours and azithromycin 500 mg IV daily for empiric coverage of bacterial pneumonia Change to Levofloxacin on 11-23 Stable improved EKG with bifascicular block QTC 510 change to Augmentin at discharge, complete 7 days treatment b Blood cultures from 11/21 drawn at 23:17 NGTD and blood cultures drawn on 11/22 at midnight NGTD D/c home f/up in clinic [facility] Assessment & Plan (11/24/2023 4:54 AM CDT): Presented to outside hospital with sore throat and cough for 2 days and fever, chills and body aches for 1 day. Found to have leukocytosis on labs and evidence of airspace opacities in the left mid and lower lung zones on chest x-ray concerning for pneumonia. Respiratory pathogen panel negative MRSA PCR screen, urinary Legionella antigen, blood cultures(hard stick and unable to obtain peripheral blood cultures) Continue IV antibiotics-cefepime 2 g IV q.8 hours and azithromycin 500 mg IV daily for empiric coverage of bacterial pneumonia Hypernatremia 10/27/2023 Assessment & Plan (10/28/2023 10:58 AM ENGINEERING LEADER): - 2/2 hypervolemic but also with possible intravascular depletion iso diarrhea and poor PO intake. Na 153 (10/27). - Improving with free water intake, D5 1/2 NS - Trend Na - Plan for Lasix once diarrhea and PO intake improve Neutropenic fever 10/25/2023 Assessment & Plan (10/28/2023 4:33 PM ENGINEERING LEADER): - 2/2 Typhlitis, Corynebacterium Jeikeium Bacteremia - Noted to have bacteria in stem cell product. Started on Vancomycin. Cefepime then added after repeat Bcx returned positive. Then developed diarrhea and abdominal pain c/w Typhlitis. Cefepime changed to Meropenem. Then on 2/8 PM, developed NF. - Bcx - see bacteremia - CT CAP (10/25) - diffuse colonic wall thickening c/w enteritis; fluid overload with moderate pleural effusions, mild pulmonary edema, small volume ascites - Vancomycin (10/21-), Cefepime (2/6-2/8), Meropenem (2/8-) Hypophosphatemia 10/25/2023 Assessment & Plan (10/25/2023 7:46 AM ENGINEERING LEADER): - Replace per protocol Neutropenic typhlitis 10/24/2023 Assessment & Plan (10/25/2023 7:31 AM ENGINEERING LEADER): - Dx clinically with abdominal pain, diarrhea, neutropenia (10/24) - Lactate 0.8 (10/24) - See NF Hypokalemia 10/23/2023 Assessment & Plan (10/23/2023 8:08 AM ENGINEERING LEADER): - likely 2/2 GI loss - Replace per protocol Acute hypoxic respiratory failure 10/23/2023 Assessment & Plan (10/28/2023 10:54 AM ENGINEERING LEADER): - 2/2 acute pulmonary edema, pleural effusions from IVF, ARLENE - CPAP QHS and naps - CT CAP - volume overload with moderate pleural effusions, mild pulmonary edema, small volume ascites - Plan for Lasix once Grade 3 mucositis with poor PO intake and chemo-induced diarrhea improve ARLENE (obstructive sleep apnea) 10/23/2023 Assessment & Plan (10/23/2023 11:09 AM ENGINEERING LEADER): - CPAP QHS and naps Pancytopenia due to antineoplastic chemotherapy 10/22/2023 Assessment & Plan (10/22/2023 8:00 AM ENGINEERING LEADER): - Transfuse per BMT protocol Chemotherapy induced diarrhea 10/22/2023 Assessment & Plan (10/22/2023 8:02 AM ENGINEERING LEADER): - c. Diff negative - Imodium prn Mucositis due to chemotherapy 10/22/2023 Assessment & Plan (10/28/2023 10:50 AM ENGINEERING LEADER): - Grade 3, difficulty tolerating PO, requiring IV narcotics - CT CAP (10/25) - circumferential esophageal wall thickening involving the mid to distal esophagus - GI cocktail (10/23) - MMW, saline rinses - Changed meds to IV where able - Dilaudid ELECTRONIC DEVELOPMENT TECHNICIAN (10/24-10/28) --> Dilaudid IV prn Bacteremia 10/21/2023 Assessment & Plan (10/28/2023 4:32 PM ENGINEERING LEADER): - Patient's sample from cryo sample positive for GPCs in 1 of 3 collections days. Subculture positive for Corynebacterium Jeikium. - BCx x1 from CVC (10/21) - Corynebacterium Jeikeium - BCx x1 from PB (10/21) - NGTD - Bcx (10/23) - NGTD - See NF - Corynebacterium Jeikeium from 10/21 originally thought to be a contamination, however, it was confirmed on 10/28 that her stem cell product subculture was the same isolate c/w true infection. - Sensitivities pending. 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 Initial M-spike 6.59 g/dL. BM biopsy w/ 50% plasma cells. FISH w/ IGH rearrangement. T/w 4 cycles jayla-RVD & 1 cycle of jayla-VD w/ molecular remission. - Admitted for melph auto SCT (10/16/23) - s/p BMBx (10/14/23) - no myeloma features - OI ppx: ACV - Filgrastim D+5 until count recovery Chronic pain syndrome 10/14/2023 Assessment & Plan (10/24/2023 10:34 AM ENGINEERING LEADER): - 2/2 MM - MRI (02/20/23) w/ L2 compression. - Oxycodone PRN (takes norc 10-325 at home) Hypertension, essential 10/14/2023 Assessment & Plan (11/26/2023 6:19 AM CDT): Continue Coreg, resume amlodipine At discharge pt will resume home lasix Assessment & Plan (11/24/2023 4:57 AM CDT): Continue Coreg, hold amlodipine pending blood pressure trend Assessment & Plan (10/28/2023 10:51 AM ENGINEERING LEADER): - Coreg, Amlodipine Autologous donor of stem cells 09/20/2023 Multiple myeloma not having achieved remission 1 10/30/2022 Cancer Staging:Clinical stage from 02/19/2023:RISS Stage II(Skfr-7-ffcyinolmnxmb (mg/L): 3.9, Albumin (g/dL): 2.2, ISS: Stage II, High-risk cytogenetics: Present, LDH: Elevated) - Signed by Nirali Romo NP on 10/02/2023 Immunizations Immunization Administration Dates Next Due Influenza, Quadrivalent, Spl it, Intramuscular 07/16/2018,09/20/2015 Influenza, Quadrivalent, Spl it, Preservative Free, Intramuscular 10/19/2019,05/31/2017,08/20/2016 Pneumococcal Conjugate PCV 13 08/20/2016 Surgical History Surgery Date Site/Laterality Comments BREAST BIOPSY 03/01/2017 Right TUNNELED LINE PLACEMENT > 5 YEARS 10/08/2023 N/A REMOVE TUNNELED LINE 11/04/2023 Left BONE MARROW TRANSPLANT N/A Medical History Medical History Date Comments COPD (chronic obstructive pulmonary disease) CHF (congestive heart failure) (HCC) Hypertension Sleep apnea CPAP at night an d with daytime naps Hypokalemia Hypomagnesemia Family History Medical History Relation Name Comments Heart attack Father Emphysema Maternal Grandfather Lung cancer Maternal Grandfather Aneurysm Mother heart issues Mother Bone cancer Paternal Grandmother Hypertension Sister Relation Name Status Comments Brother Alive Father Maternal Grandfather Maternal Grandmother Mother Paternal Grandfather Paternal Grandmother Sister Alive Social History Tobacco Use Types Packs/Day Years Used Date Smoking Tobacco: Former Cigarettes 0.8 45 0 01/1978 - 01/2023 Smokeless Tobacco: Never Tobacco Cessation:Counseling Given: Not Answered [facility] Utilities Answer Date Recorded In the past 12 months has th e [employer], gas, oil, or water [employer] threatened to shut off services in your home? No 10/28/2023 Social Connection and Isolation Panel Answer Date Recorded In a typical week, how many times do you talk on the phone with family, friends, or neighbors? More than three times a week 10/28/2023 How often do you get togethe r with friends or relatives? Twice a week 10/28/2023 How often do you attend [facility] or roman catholic services? 1 to 4 times per year 10/28/2023 Do you belong to any clubs o r organizations such as mormonism groups, unions, fraternal or athletic groups, or school groups? No 10/28/2023 How often do you attend meet ings of the clubs or organizations you belong to? Never 10/28/2023 Are you , , di vorced, , never , or living with a partner? 10/28/2023 AUDIT-C Answer Date Recorded Q1: How often do you have a drink containing alcohol? Never 10/08/2023 Q2: How many drinks containi ng alcohol do you have on a typical day when you are drinking? Patient does not drink Q3: How often do you have si x or more drinks on one occasion? Never 10/08/2023 Overall Financial Resource Strain (CARDIA) Answe r Date Recorded How hard is it for you to pa y for the very basics like food, housing, medical care, and heating? Not very hard 10/28/2023 PHQ-2 Answer Date Recorded PHQ-2 Total Score 0 10/28/2023 Hunger Vital Sign Answer Date Recorded Within the past 12 months, y ou worried that your food would run out before you got the money to buy more. Never true 10/28/19 24 Within the past 12 months, t he food you bought just didn't last and you didn't have money to get more. Never true 10/28/2023 PRAPARE - Transportation Answer Date Re corded In the past 12 months, has l ack of transportation kept you from medical appointments or from getting medications? Yes 10/17 In the past 12 months, has l ack of transportation kept you from meetings, work, or from getting things needed for daily living? No 10/28/2023 Housing Stability Vital Sign Answer Johnnie e Recorded In the last 12 months, was t here a time when you were not able to pay the mortgage or rent on time? No 10/28/2023 In the last 12 months, how many places have you lived? 1 10/28/2023 In the last 12 months, was t here a time when you did not have a steady place to sleep or slept in a retirement (including now)? No 10/28/2023 Personal Safety Answer Date Recorded Have you ever been in or are you currently in a harmful physical or emotional relationship or is someone making you feel afraid or unsafe? Denies 11/23/2023 Comments No Sex and Gender Information Value Date Recorded Sex Assigned at Not on file Legal Sex Female 7:44 PM ENGINEERING LEADER Gender Identity Not on file Sexual Orientation Not on file Obstetrics History Last Filed Vital Signs Vital Sign Reading Time Taken Comments Blood Pressure 122/73 01/24/2024 11:50 AM CDT Pulse 73 01/24/2024 11:50 AM CDT Temperature 36.2 C (97.2 F) 01/24/2024 9:46 AM CDT Respiratory Rate 20 01/24/2024 11:08 AM CDT Oxygen Saturation 95% 01/24/2024 11:50 AM CDT Inhaled Oxygen Concentration - - Weight 86.6 kg (191 lb) 01/24/2024 9:46 AM CDT Height 164.5 cm (5' 4.76) 11/23/2023 9:49 PM CS T Body Mass Index 32.02 11/23/2023 9:49 PM ENGINEERING LEADER Plan of Treatment Health Maintenance Due Date Last Done Comments Colon Cancer Screening-Colonoscopy 1955 Hepatitis C Screening 1955 Osteoporosis Screening-Bone Density Scan 1955 DTaP/Tdap/Td Vaccine (1 - Tdap) 1966 Hepatitis B Screening 1973 Zoster Vaccine (1 of 2) 1974 Lung Cancer Screening 2005 Pneumococcal vaccine 65+ (2 of 2 - PPSV23, PCV20, or PCV21) 10/15/2016 08/20/2016 Breast Cancer Screening-Mammogram 11/30/2017 017 Well Visit 65+ 2020 Depression Screening 09/24/2024 09/24/2023 Fall Risk Assessment 11/24/2024 11/25/2023 Influenza Vaccine (#1) 2025 , 07/16/2018, 05/31/2017, Additional history exists Goals Goal Patient Goal Type Associated Problems Recent Progress Patient-Stated? Author CCM Chronic Pain Care Plan Chronic Care Management Improving( 10:06 AM CDT) Roselia Quiles, RN Note: Problem: Chronic Pain Goals: 1. Minimize further functional decline 2. Maximize quality of life 3. Control pain Strategies: - Activity/exercise program recommendation - Conservative stepwise pain medicine strategy with multi-disciplinary approach - Recommend healthy lifestyle strategies and compensatory methods as needed Procedures Procedure Name Priority Date/Time Associated Diagnosis Comments SCREENING MAMMOGRAM BILATERAL W DELONTE Routine 11/30/2016 1:44 PM CDT from Last 3 Months or Most Recently Relevant to Health Maintenance Results * Screening Mammogram Bilateral W [place] (11/30/2016 1:44 PM CDT) Anatomical Region Laterality Modality Breast Bilateral Mammography 11/30/2016 1:44 PM CDT Impressions 12/06/2016 9:27 AM CDT BI-RAD 0 ADDITIONAL IMAGING EVALUATION NEEDED 1. Lateral right breast 6 mm mass at approximately 9 o'clock, 7 - 8 cm from the nipple. Right breast ultrasound is recommended for further evaluation. The patient will be contacted. 2. No mammographic evidence of malignancy involving the left breast. Rusty Pederson M.D., md/:12/06/2016 09:27:19 Biological Technician: Dorothy Coley RT(R)(M), [facility] letter sent: Additional Imaging Reading location: BI-RADS: 0 Additional Imaging Evaluation Needed [EOD] Narrative 12/06/2016 9:27 AM CDT - MG BILATERAL DIGITAL SCREENING MAMMOGRAM 3D/2D WITH MEDIOLATERAL OBLIQUE CRANIOCAUDAL: 11/30/2016 The study was acquired using full field digital technology and interpreted from soft copy. 2D digital mammographic views, as well as 3D digital tomosynthesis were performed in the CC and MLO projections. CLINICAL: Routine mammogram. Denies any problems today. No personal history of breast cancer. No family history of breast cancer. COMPARISONS: Comparison is made to exam dated: [facility]. BREAST TISSUE: There are scattered areas of fibroglandular density. FINDINGS: There is a 6 mm oval isodense mass within the lateral right breast at approximately 9 o'clock, middle depth. No suspicious mass, calcifications, or other significant mammographic findings are seen within the left breast. There has been no suspicious interval mammographic change involving the left breast. Procedure Note Provider, MD Suleman - 01/31/2021 - MG BILATERAL DIGITAL SCREENING MAMMOGRAM 3D/2D WITH MEDIOLATERAL OBLIQUE CRANIOCAUDAL: 11/30/2016 The study was acquired using full field digital technology and interpretedfrom soft copy. 2D digital mammographic views, as well as 3D digital tomosynthesis were performed in the CC and MLO projections. CLINICAL: Routine mammogram. Denies any problems today. No personalhistory of breast cancer. No family history of breast cancer. COMPARISONS: Comparison is made to exam dated: 12/28/2014 [facility]. BREAST TISSUE: There are scattered areas of fibroglandular density. FINDINGS: There is a 6 mm oval isodense mass within the lateral rightbreast at approximately 9 o'clock, middle depth. No suspicious mass, calcifications, or other significant mammographicfindings are seen within the left breast. There has been no suspicious interval mammographic change involving the left breast. IMPRESSION: BI-RAD 0 ADDITIONAL IMAGING EVALUATION NEEDED 1. Lateral right breast 6 mm mass at approximately 9 o'clock, 7 - 8 cmfrom the nipple. Right breast ultrasound is recommended for furtherevaluation. The patient will be contacted. 2. No mammographic evidence of malignancy involving the left breast. Rusty Pederson M.D., md/:12/06/2016 09:27:19 Biological Technician: Dorothy MESSER)(Judy), [facility] letter sent: Additional Imaging Reading location: BI-RADS: 0 Additional Imaging Evaluation Needed [EOD] Jeanette TREVIZO IMG MAMMO PROCEDURES Final Resul t from Last 3 Months or Most Recently Relevant to Health Maintenance Insurance [employer] MEDICARE ADVANTAGE IDPA Advance Directives For more information, please contact: [phone] * Full Code (Latest Code Status on File) Date Activated Date Inactivated Comments 11/23/2023 10:01 PM 11/25/2023 10:44 PM * Full Code Date Activated Date Inactivated Comments 10/14/2023 3:46 PM 11/04/2023 9:05 PM * Full Code Date Activated Date Inactivated Comments 10/08/2023 12:50 PM 10/09/2023 5:25 AM Care Teams Extrusion Die Repair Manager Relationship Specialty Start Date End Date Jeanette Mello PA PCP - General 08/23/20 Edwin Feldman MD [id number] [address] Referring Physician Hematology 07/30/23
--- OUTSIDE RECORDS SUMMARY | 2025-05-19 15:05 | XMS_ITS ---
Author Organization [facility] Address [address] [place] [address] Phone Care Team Providers Care Luggage Liner Name Role Phone Unavailable Primary Care Provider Unavailabl e Active Problems Problem Noted Date Diagnosed Date Multiple myeloma in relapse 05/14/2023 Multiple myeloma not having achieved remission 0 02/21/2023 Lytic bone lesions on xray 02/20/2023 Cancer, metastatic to bone 02/19/2023 Acute low back pain 02/18/2023 Bone lesion 02/18/2023 Normocytic anemia 02/18/2023 Primary hypertension 02/18/2023 Obesity (BMI 30-39.9) 02/18/2023 COPD (chronic obstructive pulmonary disease) 01/2023 Osteopenia of multiple sites 02/18/2023 Acute cystitis without hematuria 02/18/2023 Pathologic compression fracture of lumbar verteb ra 02/18/2023 Hyponatremia 02/18/2023 Current Treatment and Therapy Plans OP ONC ZOLEDRONIC ACID (ZOMETA) FOR BONE METASTASIS OR MULTIPLE MYELOMA* Plan Start Date:02/22/2023 Plan Provider:Uli Caba MD Linked Problems Cancer, metastatic to bone ( CMS/HCC)Multiple myeloma not having achieved remission (CMS/HCC) Treatment Medications No medications scheduled. Past Treatment and Therapy Plans ONCOLOGY TREATMENT Plan Name Start Date Discontinue Date Treatment Medications Discontinue Reason Plan Provider Cycles OP ONC MYELOMA _VRD_BO RTEZOMI B WEEKLY_ LENALID OMIDE_D EXAMETH ASONE_E VERY 21 DAYS 02/22/2023 03/27/2024 bortezomib (VELCADE) subcutaneous syringelenalidomide (REVLIMID) Therapy Complete Uli Caba MD 1 of 4 cycles started Lifetime Dose Tracking * Chemical Lifetime Dose Automatic Entry Manual Entr y Effective Dose 27.67 mSv 27.67 mSv 0 mSv Total DLP 1,892.75 DLP 1,892.75 DLP 0 DLP CTDIvol Max 25.86 mGy 25.86 mGy 0 mGy
--- OUTSIDE RECORDS SUMMARY | 2025-05-19 15:05 | XMS_ITS | Encounter Summary ---
Author Organization [facility] Address [address] [place] [address] Phone Care Team Providers Care Document Scanner Name Role Phone Jeanette Mello Primary Care Provider [phone] Edwin Feldman MD Unavailable [phone] Encounter Details Date Type Department Care Team (Late st Contact Info) Description 10/07/2023 Telephone [facility] Oncology [facility] Advanced Medicine 7th [place] [address] [place] [address] Vianney Perez Social History Tobacco Use Types Packs/Day Years Used Date Smoking Tobacco: Former Cigarettes 0.8 45 0 01/1978 - 01/2023 Smokeless Tobacco: Never AUDIT-C Answer Date Recorded Q1: How often do you have a drink containing alcohol? Never 10/08/2023 Q2: How many drinks containi ng alcohol do you have on a typical day when you are drinking? Patient does not drink Q3: How often do you have si x or more drinks on one occasion? Never 10/08/2023 Personal Safety Answer Date Recorded Getting School Help Needed Denies 10/03 Comments Unknown Sex and Gender Information Value Date Recorded Sex Assigned at Not on file Legal Sex Female 7:44 PM PHYSICAL FITNESS TRAINER Gender Identity Not on file Sexual Orientation Not on file documented as of this encounter Functional Status * AUDIT-C Score Answer Date of Assessment Author 0 10/08/2023 10:16 AM Farheen Bernstein, BEAR * Question Answer Date of Assessment Author Q1: How often do you have a drink containing alcohol? Never 10/08/2023 10:16 AM Roselia Bernstein, BEAR Q2: How many drinks containing alcohol do you have on a typical day when you are drinking? Patient does not drink 10/08/2023 12:56 PM Jojo Jones RN Q3: How often do you have six or more drinks on one occasion? Never 10/08/2023 10:16 AM Roselia Bernstein, BEAR documented as of this encounter Plan of Treatment Not on file documented as of this encounter Goals Goal Patient Goal Type Associated Problems Recent Progress Patient-Stated? Author CCM Chronic Pain Care Plan Chronic Care Management Improving( 10:06 AM CDT) Roselia Quiles RN Note: Problem: Chronic Pain Goals: 1. Minimize further functional decline 2. Maximize quality of life 3. Control pain Strategies: - Activity/exercise program recommendation - Conservative stepwise pain medicine strategy with multi-disciplinary approach - Recommend healthy lifestyle strategies and compensatory methods as needed documented as of this encounter Results * (ABNORMAL) CBC with auto differential (10/08/2023 7:17 AM PHYSICAL FITNESS TRAINER) WBC 30.3(H) 3.8 - 9.8 K/cumm [facility] Comment:Testing performed by : [facility], [address] [place] [phone] Hgb 10.6(L) 12.1 - 15.1 g/dL [facility] Comment:Testing performed by : [facility], [address] [place] [phone] Hct 31.8(L) 36.1 - 44.3 % [facility] Comment:Testing performed by : [facility], [address] [place] [phone] Plt 146 140 - 440 K/cumm [facility] Comment:Testing performed by : [facility], [address] [place] [phone] MPV 7.5 6.8 - 10.4 fL [facility] Comment:Testing performed by : [facility], [address] [place] [phone] RBC 3.69(L) 3.90 - 5.00 M/cumm [facility] Comment:Testing performed by : [facility], [address] [place] [phone] MCV 86.3 80.0 - 97.6 fL [facility] Comment:Testing performed by : [address] [phone] MCH 28.8 26.7 - 33.7 pg [facility] Comment:Testing performed by : [facility], [address] [place] [phone] MCHC 33.4 32.7 - 35.5 g/dL [facility] Comment:Testing performed by : [facility], [address] [place] [phone] RDW CV 16.4(H) 11.8 - 14.6 % [facility] Comment:Testing performed by : [facility], [address] [place] [phone] NRBC abs 0.03(H) 0.00 - 0.01 K/cumm [facility] Comment:Testing performed by : [address] [phone] Blood 10/08/2023 7:17 AM PHYSICAL FITNESS TRAINER 10/08/2023 7:22 AM PHYSICAL FITNESS TRAINER us Martin Pacheco MD LAB BLOOD ORDERABLES Final Resul t [facility] [place] [address] documented in this encounter Visit Diagnoses Diagnosis Autologous donor of stem cells- Primary Multiple myeloma not having achieved remission (HCC) documented in this encounter Additional Health Concerns Infection Onset Date Last Indicated Resolved Time Diarrhea 10/20/2023 10/20/2023 10/22/2023 8:56 AM PHYSICAL FITNESS TRAINER Diarrhea 10/26/2023 10/26/2023 10/26/2023 3:02 PM PHYSICAL FITNESS TRAINER Diarrhea 10/31/2023 10/31/2023 10/31/2023 3:14 PM PHYSICAL FITNESS TRAINER COVID: Suspected 11/23/2023 11/23/2023 11/24/2023 1:02 AM PHYSICAL FITNESS TRAINER documented as of this encounter Care Teams Document Scanner Relationship Specialty Start Date End Date Jeanette Mello PA PCP - General 08/23/20 Ediwn Feldman MD [address] [address] Referring Physician Hematology 07/30/23 documented as of this encounter
--- OUTSIDE RECORDS SUMMARY | 2025-05-19 15:05 | XMS_ITS | Encounter Summary ---
Author Organization [facility] Address [address] [place] [address] Care Team Providers Care Garden Labourer Name Role Phone Unavailable Primary Care Provider Unavailabl e Encounter Details Date Type Department Care Team (Late Contact Info) Description 05/17/2025 Orders Only [facility] Oncology and Hematology - [place] [address] [facility] [address] [place] [address] Edwin Feldman MD [address] [facility] [address] [place] [address] Multiple myeloma not having achieved remission (CMS/HCC) Social History Tobacco Use Types Packs/Day Years Used Date Smoking Tobacco: Former Cigarettes 1 40 0 04/07/1983 - 04/07/2023 Smokeless Tobacco: Never Alcohol Use Standard Drinks/Week Comments Not Currently 0 (1 standard drink = 0.6 oz pur e alcohol) once a year Feeling Safe Answer Date Recorded Are you in a relationship wi th someone who hurts you emotionally and/or physically? No 03/05/2023 Food Insecurity Answer Date Recorded Social/Environmental Concerns No concerns Transportation Needs Answer Date Record ed Social/Environmental Concerns No concerns Housing Stability Answer Date Recorded Social/Environmental Concerns No concerns Utility Needs Answer Date Recorded Social/Environmental Concerns No concerns Comments Unknown Sex and Gender Information Value Date Recorded Sex Assigned at Not on file Legal Sex Female 3:04 PM CDT Gender Identity Not on file Sexual Orientation Not on file documented as of this encounter Plan of Treatment Upcoming Encounters Date Type Department Care Team (Late st Contact Info) Description 06/02/2025 9:30 AM CDT Office Visit [facility] Oncology and Hematology - [place] [address] [facility] [address] [place] [address] Edwin Feldman MD [address] [facility] [address] [place] [address] documented as of this encounter Visit Diagnoses Diagnosis Multiple myeloma not having achieved remission (CMS/HCC) Multiple myeloma, without mention of having achieved remission documented in this encounter
--- OUTSIDE RECORDS SUMMARY | 2025-05-19 15:05 | XMS_ITS | Clinical Summary ---
Author Organization [facility] Address [address] [place] [address] Phone Care Team Providers Care Multicultural Services Librarian Name Role Phone Unavailable Primary Care Provider Unavailabl e Allergies No known active allergies Medications amLODIPine (NORVASC) 10 mg tablet Take 10 mg by mouth daily. Active ferrous sulfate 325 mg (65 mg iron) tablet Take 325 mg by mouth daily. Active gabapentin (NEURONTIN) 300 mg capsule Take 600 mg by mouth 3 times daily. Active meclizine (ANTIVERT) 25 mg tablet Take 25 mg by mouth 3 times daily as needed for Dizziness. Active sertraline (ZOLOFT) 100 mg tablet Take 100 mg by mouth daily. Active budesonide-fo rmoteroL (SYMBICORT) 160-4.5 mcg/actuation HFA Aerosol Inhaler Take 2 Puffs by inhalation daily. Active albuterol sulfate HFA 90 mcg/actuation aerosol inhaler Take 2 Puffs by inhalation every 6 hours as needed for Shortness of Breath. Active aspirin (Gentry Low Dose Aspirin) 81 mg Tablet, Delayed Release (E.C.)Indicat ions:Multiple myeloma not having achieved remission (CMS/HCC) Take 1 Tablet (81 mg) by mouth daily. For prevention of blood clots while on lenalidomide (REVLIMID) 023 Active loperamide (IMODIUM) 2 mg capsuleIndica tions:Multipl e myeloma not having achieved remission (CMS/HCC) Take 1 Capsule (2 mg) by mouth see administration instructions. Take 2 capsules (4 mg) by mouth with the first loose stool, then take 1 capsule (2 mg) by mouth every 2 hours until no diarrhea for 12 hours. Call the office if diarrhea continues or if you have symptoms of dehydration, lightheadedness or dizziness. Do not take more than 8 capsules in a 24 hour period. 023 Active docusate sodium (COLACE) 100 mg capsuleIndica tions:Multipl e myeloma not having achieved remission (CMS/HCC) Take 1 Capsule (100 mg) by mouth 3 times daily as needed for Constipation. Contact health care provider prior to use if nausea, stomach pain, or vomiting are present, or if a sudden change in bowel habits occurs and persists over 14 days. Contact healthcare provider if a bowel movement fails to occur after use, or if use is needed greater than 7 days. 023 Active ergocalcifero l (VITAMIN D2) 50,000 unit capsule Starting 03/12, Take 1 Capsule (50,000 Units) by mouth every 7 days. 6 Capsule 3 3:05 PM CDT 023 Active naloxone (NARCAN) 4 mg/spray [place], Non-Aerosol EMERGENCY USE ONLY: Administer 1 spray (4 mg) in one nostril one time. May repeat in alternating nostrils every 2-3 min until responsive or EMS arrives. 2 Each 3 3 3:05 PM CDT 023 Active lidocaine-luciano locaine (EMLA) 2.5-2.5 % CreamIndicati ons:Multiple myeloma not having achieved remission (CMS/HCC) Apply to affected area see administration instructions. 30 Gram 1 023 Active omeprazole (PriLOSEC) 20 mg Capsule, Delayed Release(E.C.) Indications:M ultiple myeloma not having achieved remission (CMS/HCC) Take 1 Capsule (20 mg) by mouth daily. 30 Capsule 3 023 Active dexAMETHasone (DECADRON) 4 mg tabletIndicat ions:Multiple myeloma not having achieved remission (CMS/HCC) Take 10 Tablets (40 mg) by mouth once a day on Days 1, 8, and 15 of each 21-day chemotherapy cycle. 30 Tablet 3 023 Active sulfamethoxaz ole-trimethop rim (BACTRIM DS) 800-160 mg tabletIndicat ions:Multiple myeloma not having achieved remission (CMS/HCC) TAKE 1 TABLET BY MOUTH ON SATURDAY, SATURDAY, AND SATURDAY 12 Tablet 3 023 Active carvediloL (COREG) 3.125 mg tablet Take 1 Tablet (3.125 mg) by mouth 2 times daily with meals. 30 Tablet 024 Active ondansetron (ZOFRAN ODT) 8 mg Tablet, Rapid DissolveIndic ations:Multip le myeloma not having achieved remission (CMS/HCC) Dissolve 1 tablet on top of tongue then swallow with saliva every 8 hours as needed for nausea or vomiting 30 Tablet 024 Active potassium CHLORIDE (KLOR-CON M20) 20 mEq Extended Release tablet TAKE 1 TABLET(20 MEQ) BY MOUTH DAILY 30 Tablet 3 025 Active acyclovir (ZOVIRAX) 400 mg tabletIndicat ions:Multiple myeloma not having achieved remission (CMS/HCC) Take 1 tablet by mouth BID. 60 Tablet 2 025 Active HYDROcodone-a cetaminophen (NORCO) 10-325 mg TabletIndicat ions:Multiple myeloma not having achieved remission (CMS/HCC) Take 1 Tablet by mouth every 4 hours as needed for Pain, Moderate. Max Daily Amount: 6 Tablets 60 Tablet 025 Active lenalidomide (Revlimid) 10 mg capsuleIndica tions:Multipl e myeloma not having achieved remission (CMS/HCC) TAKE 1 CAPSULE BY MOUTH DAILY FOR 21 DAYS ON THEN 7 DAYS OFF 21 Capsule 025 Active lenalidomide (Revlimid) 10 mg capsuleIndica tions:Multipl e myeloma not having achieved remission (CMS/HCC) TAKE 1 CAPSULE BY MOUTH DAILY FOR 21 DAYS ON THEN 7 DAYS OFF 21 Capsule 025 2024 Discontinued Active Problems Problem Noted Date Diagnosed Date [...] of lumbar verteb ra 02/18/2023 Hyponatremia 02/18/2023 Encounters Date Type Department Care Team Description 05/17/2025 Orders Only [facility] Oncology and Hematology - [place] Tiffani Fox [address] Edwin Feldman MD Multiple myeloma not having achieved remission (CMS/HCC) 05/06/2025 Orders Only [facility] Oncology and Hematology - [place] [address] Edwin Feldman MD 05/03/2025 Orders Only [facility] Oncology and Hematology - [place] [address] [place] [phone] Edwin Feldman MD Multiple myeloma not having achieved remission (CMS/HCC) 04/27/2025 External Device Data STL ABSTRACTION Provider, Abstract 04/22/2025 Refill [facility] Oncology and Hematology - [place] Tiffani Fox [address] [place] [phone] Edwin Feldman MD Multiple myeloma not having achieved remission (CMS/HCC) 04/22/2025 Orders Only [facility] Oncology and Hematology - [place] [address] [place] [phone] Edwin Feldman MD 04/21/2025 Orders Only [facility] Oncology and Hematology - [place] [address] [place] [phone] Edwin Feldman MD 04/21/2025 External Device Data STL ABSTRACTION Provider, Abstract 04/19/2025 Orders Only [facility] Oncology and Hematology - [place] [address] [place] [phone] Edwin Feldman MD Multiple myeloma not having achieved remission (CMS/HCC) 04/13/2025 Abstract [facility] Oncology and Hematology - [place] [address] [place] [address] Edwin Feldman MD 04/08/2025 Orders Only [facility] Oncology and Hematology - [place] [address] [place] [phone] Edwin Feldman MD 04/07/2025 Orders Only [facility] Oncology and Hematology - [place] Al[address] [place] [phone] Edwin Feldman MD 04/05/2025 Orders Only [facility] Oncology and Hematology [place] [address] [place] [phone] Edwin Feldman MD Multiple myeloma not having achieved remission (CMS/HCC) 03/31/2025 External Device Data STL ABSTRACTION Provider, Abstract 03/30/2025 External Device Data STL ABSTRACTION Provider, Abstract 03/26/2025 Refill [facility] Oncology and Hematology [facility] Alida Fox [address] [place] [phone] Edwin Feldman MD Multiple myeloma not having achieved remission (CMS/HCC) 03/22/2025 Orders Only [facility] Oncology and Hematology [facility] Al[address] Fox [address] [place] [id number] Edwin Feldman MD Multiple myeloma not having achieved remission (CMS/HCC) 03/11/2025 Orders Only [facility] Oncology and Hematology [place] [facility] Alida Fox [address] [place] [phone] Edwin Feldman MD 03/08/2025 Orders Only [facility] Oncology and Hematology [place] [address] [place] [address] Edwin Feldman MD Multiple myeloma not having achieved remission (CMS/HCC) 03/02/2025 9:45 AM CDT Office Visit [facility] Oncology and Hematology [facility] Nav Fox [address] [place] [phone] Edwin Feldman MD Multiple myeloma not having achieved remission (CMS/HCC) (Primary Dx) 03/02/2025 External Device Data STL ABSTRACTION Provider, Abstract 03/01/2025 Orders Only [facility] Oncology and Hematology - [place] [address] Edwin Feldman MD 02/25/2025 Refill [facility] Oncology and Hematology - [place] [address] [place] [phone] Edwin Feldman MD Multiple myeloma not having achieved remission (CMS/HCC) 02/25/2025 Orders Only [facility] Oncology and Hematology - [place] Al[address] Edwin Feldman MD 02/24/2025 Orders Only [facility] Oncology and Hematology - [place] [address] [place] [phone] Edwin Feldman MD 02/22/2025 Orders Only [facility] Oncology and Hematology - [place] Alida [address] [place] [phone] Edwin Feldman MD Multiple myeloma not having achieved remission (CMS/HCC) from Last 3 Months Family History Medical History Relation Name Comments Heart Disease Father Relation Name Status Comments Brother Alive Daughter Alive Father Mother Sister Alive Son Alive Social History Tobacco Use Types Packs/Day Years Used Date Smoking Tobacco: Former Cigarettes 1 40 0 04/07/1983 - 04/07/2023 Smokeless Tobacco: Never Tobacco Cessation:Counseling Given: Not Answered Alcohol Use Standard Drinks/Week Comments Not Currently [...] on file Sexual Orientation Not on file Last Filed Vital Signs Vital Sign Reading Time Taken Comments Blood Pressure 129/73 03/02/2025 9:45 AM CDT Pulse 66 03/02/2025 9:45 AM CDT Temperature 36.1 C (97 F) 03/02/2025 9:45 AM CDT Respiratory Rate 15 03/02/2025 9:45 AM CDT Oxygen Saturation 92% 03/02/2025 9:45 AM CDT Inhaled Oxygen Concentration - - Weight 87.3 kg (192 lb 6.4 oz) 03/02/2025 9:45 A M CDT Height 165.1 cm (5' 5) 04/11/2023 11:21 AM CDT Body Mass Index 32.02 04/11/2023 11:21 AM CDT Plan of Treatment Upcoming Encounters Date Type Department Care Team (Late st Contact Info) Description 06/02/2025 9:30 AM CDT Office Visit [facility] Oncology and Hematology - [place] [address] [facility] [address] [place] [address] Edwin Feldman MD [address] [facility] [address] [place] [address] Health Maintenance Due Date Last Done Comments DIABETES ANNUAL FOOT EXAM 1973 DIABETES ANNUAL RETINAL EXAM 1973 DIABETES MICROALBUMIN ANNUAL SCREEN 1973 LDL CHOLESTEROL ANNUAL 1973 DTAP/TDAP/TD VACCINES (1 - Tdap) 1974 ZOSTER VACCINE (1 of 2) 1974 FIT-DNA Q 3 years 2000 FIT/FOBT Q 1 year 2000 Flex Sig/CT Colonography Q 5 years 2000 Lung Cancer Screening 2005 RSV VACCINE (60+ or ) (1 - Risk 60-74 years 1-dose series) 2015 PNEUMOCOCCAL VACCINE 50+ YEA RS (2 of 2 - PPSV23, PCV20, or PCV21) 10/15/2016 08/20/2016 BREAST CANCER SCREENING 01/18/2018 01/19/20, 11/30/2016, 11/30/2016 OSTEOPOROSIS SCREENING 2020 DIABETES HBA1C Q 6 MONTHS 03/24/2024 09/24/2023 Medicare Advantage ([place]) Preventative Visit/Annual Wellness Visit 09/16/2024 INFLUENZA VACCINE (#1) 2025 0, 07/16/2018, 05/31/2017, Additional history exists COLORECTAL SCREENING 10/21/2028 10/21/2018 Colorectal Cancer Screening 10/21/2028 Procedures Procedure Name Priority Date/Time Associated Diagnosis Comments BASIC METABOLIC PANEL Routine 2025 11:03 AM CDT COMPREHENSIVE METABOLIC PANEL Routine 2025 10:31 AM CDT BASIC METABOLIC PANEL Routine 04/21/2025 3:02 PM CDT CBC WITH AUTODIFFERENTIAL Routine 2024 1:00 PM CDT COMPREHENSIVE METABOLIC PANEL Routine 04/21/2025 11:43 AM CDT CBC WITH DIFFERENTIAL Routine 04/07/2025 2:23 PM CDT BASIC METABOLIC PANEL Routine 04/07/2025 2:16 PM CDT COMPREHENSIVE METABOLIC PANEL Routine 04/07/2025 12:47 PM CDT BASIC METABOLIC PANEL Routine 03/10/2025 4:13 PM CDT CBC WITH DIFFERENTIAL Routine 03/10/2025 4:07 PM CDT BASIC METABOLIC PANEL Routine 02/24/2025 4:15 PM CDT CBC WITH AUTODIFFERENTIAL Routine 2024 4:14 PM CDT PROTEIN ELECTROPHORESIS, CSF Routine 02/24/2025 3:34 PM CDT KAPPA/LAMBDA LIGHT CHAINS Routine 2024 1:51 PM CDT COMPREHENSIVE METABOLIC PANEL Routine 02/24/2025 11:12 AM CDT from Last 3 Months Results * BASIC METABOLIC PANEL (2025 11:03 AM CDT) Only the most recent of5 resultswithin the time period is included. Blood Edwin Feldman MD CHEMISTRY ORDERABLES Final Resu lt * COMPREHENSIVE METABOLIC PANEL (2025 10:31 AM CDT) Only the most recent of4 resultswithin the time period is included. Blood us Edwin Feldman MD CHEMISTRY ORDERABLES Final Resu lt * CBC WITH AUTODIFFERENTIAL (04/21/2025 1:00 PM CDT) Only the most recent of2 resultswithin the time period is included. Blood us Edwin Feldman MD HEMATOLOGY ORDERABLES Final Res ult * CBC WITH DIFFERENTIAL (04/07/2025 2:23 PM CDT) Only the most recent of2 resultswithin the time period is included. Blood Result [facility] us Edwin Feldman MD HEMATOLOGY ORDERABLES Final Res ult * PROTEIN ELECTROPHORESIS, CSF (02/24/2025 3:34 PM CDT) Cerebrospinal fluid CEREBROSPINAL FLUID / Unknown us Edwin Feldman MD BODY FLUIDS AND STOOLS Final Re sult * KAPPA/LAMBDA, FREE LIGHT CHAINS (02/24/2025 1:51 PM CDT) Blood us Edwin Feldman MD CHEMISTRY ORDERABLES Final Resu lt from Last 3 Months Insurance [place] RX [employer] RX Member Subscriber Plan / Payer (Ef fective 2021-Present) Name:Marion Zayas Relation to Subscriber:Self Name:Marion Zayas Payer ID:Not on file Group ID:[id number] Type:RX Medicare Part D Address: [address] [facility] [id number] [place] Advance Directives For more information, please contact: [phone] * Full Code (Latest Code Status on File) Date Activated Date Inactivated Comments 02/18/2023 4:44 PM 03/08/2023 7:37 PM
--- OUTSIDE RECORDS SUMMARY | 2025-05-19 15:05 | XMS_ITS ---
Author Organization [facility] Address [facility] [place] [address] Care Team Providers Care Life Underwriter Name Role Phone Jeanette Mello Primary Care Provider [phone] Edwin Feldman MD Unavailable [phone] Active Problems Patient Care Coordination No te [...] Medical Assistants Post-Discharge Follow-Up Living Situation/Distance from [place], [place]= 1hr Caregiver son Lab/Transfusion Frequency Venous [...] home f/up in clinic Resume HH at [facility] Assessment & Plan (11/24/2023 4:54 AM CDT): [...] 10/27/2023 Assessment & Plan (10/28/2023 10:58 AM PRESS OFFICER): - 2/2 hypervolemic but also with possible intravascular depletion iso diarrhea and poor PO intake. Na 153 (10/27). - Improving with free water intake, D5 1/2 NS - Trend Na - Plan for Lasix once diarrhea and PO intake improve Neutropenic fever 10/25/2023 Assessment & Plan (10/28/2023 4:33 PM PRESS OFFICER): - 2/2 Typhlitis, Corynebacterium Jeikeium Bacteremia - Noted to have bacteria in stem cell product. Started on Vancomycin. Cefepime then added after repeat Bcx returned positive. Then developed diarrhea and abdominal pain c/w Typhlitis. Cefepime changed to Meropenem. Then on 2 PM, developed NF. - Bcx - see bacteremia - CT CAP (10/25) - diffuse colonic wall thickening c/w enteritis; fluid overload with moderate pleural effusions, mild pulmonary edema, small volume ascites - Vancomycin (10/21-), Cefepime (10/22-10/24), Meropenem (10/24-) Hypophosphatemia 10/25/2023 Assessment & Plan (10/25/2023 7:46 AM PRESS OFFICER): - Replace per protocol Neutropenic typhlitis 10/24/2023 Assessment & Plan (10/25/2023 7:31 AM PRESS OFFICER): - Dx clinically with abdominal pain, diarrhea, neutropenia (10/24) - Lactate 0.8 (10/24) - See NF Hypokalemia 10/23/2023 Assessment & Plan (10/23/2023 8:08 AM PRESS OFFICER): - likely 2/2 GI loss - Replace per protocol Acute hypoxic respiratory failure 10/23/2023 Assessment & Plan (10/28/2023 10:54 AM PRESS OFFICER): - 2/2 acute pulmonary edema, pleural effusions from IVF, ARLENE - CPAP QHS and naps - CT CAP - volume overload with moderate pleural effusions, mild pulmonary edema, small volume ascites - Plan for Lasix once Grade 3 mucositis with poor PO intake and chemo-induced diarrhea improve ARLENE (obstructive sleep apnea) 10/23/2023 Assessment & Plan (10/23/2023 11:09 AM PRESS OFFICER): - CPAP QHS and naps Pancytopenia due to antineoplastic chemotherapy 10/22/2023 Assessment & Plan (10/22/2023 8:00 AM PRESS OFFICER): - Transfuse per BMT protocol Chemotherapy induced diarrhea 10/22/2023 Assessment & Plan (10/22/2023 8:02 AM PRESS OFFICER): - c. Diff negative - Imodium prn Mucositis due to chemotherapy 10/22/2023 Assessment & Plan (10/28/2023 10:50 AM PRESS OFFICER): - Grade 3, difficulty tolerating PO, requiring IV narcotics - CT CAP (10/25) - circumferential esophageal wall thickening involving the mid to distal esophagus - GI cocktail (10/23) - MMW, saline rinses - Changed meds to IV where able - Dilaudid LAUNDRY AIDE (10/24-10/28) --> Dilaudid IV prn Bacteremia 10/21/2023 Assessment & Plan (10/28/2023 4:32 PM PRESS OFFICER): - Patient's sample from cryo sample positive [...] protocol Assessment & Plan (10/24/2023 10:54 AM PRESS OFFICER): - 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 [...] 10/14/2023 Assessment & Plan (10/24/2023 10:34 AM PRESS OFFICER): - 2/2 MM - MRI (02/20/23) w/ L2 compression. - Oxycodone PRN (takes norc 10-325 at home) Hypertension, essential 10/14/2023 Assessment & Plan (11/26/2023 6:19 AM CDT): Continue Coreg, resume amlodipine At discharge pt will resume home lasix Assessment & Plan (11/24/2023 4:57 AM CDT): Continue Coreg, hold amlodipine pending blood pressure trend Assessment & Plan (10/28/2023 10:51 AM PRESS OFFICER): - Coreg, Amlodipine Autologous donor of stem cells 09/20/2023 Multiple myeloma not having achieved remission 1 10/30/2022 Cancer Staging:Clinical stage from 02/19/2023:RISS Stage II(Mniy-5-vanqoxcwcfhhw (mg/L): 3.9, Albumin (g/dL): 2.2, ISS: Stage II, High-risk cytogenetics: Present, LDH: Elevated) - Signed by Nirali Romo NP on 10/02/2023 Current Treatment and Therapy Plans Adult BMT/ONC - Blood and/or Platelet Administration for Outpatient* Plan Start Date:10/11/2023 Plan Provider:Martin Pacheco MD Linked Problems Multiple myeloma not having achieved remission (HCC) Treatment Medications No medications scheduled. Apheresis Cellular Therapy Cell Collection* Plan Start Date:10/09/2023 Plan Provider:Martin Pacheco MD Linked Problems Multiple myeloma not having achieved remission (HCC)Autologous donor of stem cells Treatment Medications No medications scheduled. BMT Adult Blood and Platelet Administration for Inpatient* Plan Start Date: 10/16/2023 Plan Provider:Ozzy Lion MD Linked Problems Multiple myeloma in [facility] n (HCC) Treatment Medications No medications scheduled. Electrolyte Replacement & Hydration Therapy Plan* Plan Start Date:11/05/2023 Plan Provider:Martin Pacheco MD Linked Problems Multiple myeloma not having achieved remission (HCC) Treatment Medications No medications scheduled. IV Maintenance Therapy Plan* Plan Start Date:11/05/2023 Plan Provider:Martin Pacheco MD Linked Problems Multiple myeloma not having achieved remission (HCC) Treatment Medications No medications scheduled. Past Treatment and Therapy Plans Oncology Chemotherapy Treatment Plan Name Start Date Discontinue Date Treatment Medications Discontinue Reason Plan Provider Cycles BMT - Standard Hematopoietic Progenitor Cell Mobilization (Auto) Standard GCSF and Plerixafor (Mozobil) 4 11/08/2023 plerixafor (MOZOBIL) Therapy Complete Martin Pacheco MD 1 of 1 cycle started Oncology Treatment (2) Plan Name Start Date Discontinue Date Treatment Medications Discontinue Reason Plan Provider Cycles INPT - Melphalan - BMT 10/14/2023 11/08/2023 melphalan (ALKERAN) IVPB in 250 mL Therapy Complete Martin Pacheco MD 1 of 1 cycle started Lifetime Dose Tracking * Chemical Lifetime Dose Automatic Entry Manual Entr y Fluoro Time 1.4 minutes 1.4 minutes 0 minutes Air kerma at the reference point (Ka,r) 13 mGy 1 3 mGy 0 mGy Treatment Summaries Multiple myeloma not having achieved remission (HCC)* Images from the original note were not included. [place] [id number] This Survivorship Care Plan is a cancer treatment summary and follow-up plan and is provided to youto keep with your health care records and to share with your primary care provider or any of your doctors and nurses. This summary is a brief record of major aspects of your transplant, not a detailed or comprehensiverecord of your care. We will continue to monitor your post-transplant status and help arrange follow-up care if applicable. You should review this with your cancer provider. Treatment Summary and Survivorship Care Plan for Hematologic Malignancies/Transplant and Cellular Therapy Program General Information Patient name Marion Zayas (home) Date of 1955 Health Care Providers (Including Names, Institutions) Provider Name: Contact Information: Referring Provider Edwin Feldman MD [phone] Primary Care Physician Jeanette Mello PA [phone] BMT Physician/ Advanced Practice Provider Martin Pacheco MD/Nirali Romo [facility] [phone] Antichecking Iron Worker Hina Philippe RN [phone] Oil Lease Broker Roland Rand [facility] [phone] Oncology History Overview Note 04/07/23: DVRD x4 cycles, then DVD x1 cycle 10/16/23: (planned) ASCT Multiple myeloma not having achieved remission (CMS/HCC) ([facility]) 08/29/2023 Initial Diagnosis Multiple myeloma not having achieved remission (CMS/HCC) ([facility]) Treatment Summary Cancer Diagnosis Information Multiple myeloma not having achieved remission (CMS/HCC) ([facility]) 08/29/2023 Initial Diagnosis Multiple myeloma not having achieved remission (CMS/HCC) ([facility]) Patient Active Problem List Diagnosis Multiple myeloma not having achieved remission (CMS/HCC) ([facility]) Autologous donor of stem cells Multiple myeloma in remission (CMS/HCC) ([facility]) Chronic pain syndrome Hypertension, essential Bacteremia Pancytopenia due to antineoplastic chemotherapy (HCC) Chemotherapy induced diarrhea Mucositis due to chemotherapy Hypokalemia Acute hypoxic respiratory failure (HCC) ARLENE (obstructive sleep apnea) Neutropenic typhlitis (HCC) Neutropenic fever (CMS/HCC) (HCC) Hypophosphatemia Hypernatremia Community acquired pneumonia Abnormal urinalysis Past Medical History: Diagnosis Date CHF (congestive heart failure) (CMS/HCC) (HCC) COPD (chronic obstructive pulmonary disease) (HCC) Hypertension Hypokalemia Hypomagnesemia Sleep apnea CPAP at night and with daytime naps Adverse Drug Reaction/Allergies Patient has no known allergies. Family History Cancer Cancer-related family history includes Bone cancer in her paternal grandmother; Lung cancer in her maternal grandfather. Genetic/hereditaryrisk factor(s) or predisposing condition: High risk cytogenetics present: t(4;14). Cancer Staging Cancer Staging Multiple myeloma not having achieved remission (CMS/HCC) (HCC) Staging form: Plasma Cell Myeloma and Plasma Cell Disorders, AJCC 8th Edition - Clinical stage from 02/19/2023: RISS Stage II (Mvch-9-zkfowaxdsrduk (mg/L): 3.9, Albumin (g/dL): 2.2, ISS: Stage II, High-risk cytogenetics: Present, LDH: Elevated) - Signed by Nirali Romo NP on 10/02/2023 Systemic Therapy (chemotherapy, hormonal therapy, other) BMT - Standard Hematopoietic Progenitor Cell Mobilization (Auto) Standard GCSF and Plerixafor (Mozobil) Treatment goal [No plan goal] Status Inactive Start Date 10/04/2023 End Date 10/10/2023 Provider Martin Pacheco MD Chemotherapy filgrastim-sndz (ZARXIO) subcutaneous injection 900 mcg, 10 mcg/kg = 900 mcg, subcutaneous, Once, 1 of 1 cycle Administration: 900 mcg (10/04/2023), 900 mcg (10/05/2023), 900 mcg (10/06/2023), 900 mcg (10/08/2023) INPT - Melphalan - BMT Treatment goal [No plan goal] Status Inactive Start Date 10/14/2023 End Date 10/21/2023 Provider Martin Pacheco MD Chemotherapy melphalan (ALKERAN) 350 mg in sodium chloride 0.9% 250 mL IVPB, 200 mg/m2 = 350 mg, intravenous, Once, 1 of 1 cycle Administration: 350 mg (10/14/2023) filgrastim-sndz (ZARXIO) syringe 480 mcg, 480 mcg, subcutaneous, Every 24 hours, 1 of 1 cycle Administration: 480 mcg (10/21/2023), 480 mcg (10/22/2023), 480 mcg (10/23/2023), 480 mcg (10/24/2023), 480mcg (10/25/2023), 480 mcg (10/26/2023), 480 mcg (10/27/2023), 480 mcg (10/28/2023), 480 mcg (10/29/2023) Surgery Past Surgical History: Procedure Laterality Date BONE MARROW TRANSPLANT N/A BREAST BIOPSY Right 03/01/2017 REMOVE TUNNELED LINE Left 11/04/2023 TUNNELED LINE PLACEMENT > 5 YEARS N/A 10/08/2023 Radiation Radiation Treatments No radiation treatments to show. (Treatments may have been administered in another system.) Cellular Therapy & Transplant Date Transplant Type Source Conditioning Regimen 10/16/2023 HCT Type: autologous Donor Type: autologous INPT - MELPHALAN - BMT Lab Results Lab Results Component Value Date [id number] 82 09/24/2023 DLCOPREPRED 57 09/24/2023 TSH 0.69 10/29/2023 WBC 7.4 01/24/2024 HGB 10.6 (L) 01/24/2024 LABPLAT 248 01/24/2024 NEUTROABS 4.7 01/24/2024 BUNSER 18 12/03/2023 CREATININE 0.76 12/03/2023 BILITOT 0.4 12/03/2023 ALKPHOS 80 12/03/2023 AST 15 12/03/2023 ALT 13 12/03/2023 Tumor Marker History Latest Ref Rng & Units 09/24/2023 14:05 10/14/2023 07:59 11/23/2023 22:58 12/03/2023 12:12 Tumor Markers Fibrinogen 170 - 400 mg/dL 313 481 Immunoglobulin G 700 - 1,600 mg/dL 466.0 <300 372 Immunoglobulin A 70 - 400 mg/dL <50.0 <50 Immunoglobulin M 40 - 230 mg/dL <25.0 <25 Clymer/Lambda light chains free with ratio 0.26 - 1.65 0.26 - 1.65 >0.78 >0.73 1.69 Clymer light chain, free 0.33 - 1.94 mg/dL 0.33 - 1.94 mg/dL 0.47 0.44 0.54 Lambda light chain, free 0.57 - 2.63 mg/dL <0.60 <0.60 Protein, sr 6.2 - 8.2 g/dL 6.2 6.1 Albumin 3.2 - 5.0 g/dL 4.1 4.0 Alpha-1 globulin 0.2 - 0.4 g/dL 0.3 0.4 Alpha-2 globulin 0.5 - 1.0 g/dL 0.7 0.7 Beta-1 globulin 0.3 - 0.6 g/dL 0.3 0.3 Beta-2 globulin 0.2 - 0.6 g/dL 0.4 0.4 Gamma globulin 0.5 - 1.7 g/dL 0.4 0.3 Rstr Pk Gamma peak A 0.0 - 0.0 g/dL 0.1 Rstr Pk Gamma peak B 0.0 - 0.0 g/dL 0.1 SPEP interp Please see comment Please see comment CRAB criteria C = calcium elevation R = renal (elevation in creatinine) A = anemia (hgb <10) B = bone lesions Definitions of response (per International Myeloma Working Group): CR = Complete response - no quantifiable M-protein (spike), no paraprotein/monoclonal protein present on immunofixation, BMBX with <5% plasma cells. Stringent CR - CR as above PLUS normal serum free light chains and no clonal cells in bone marrow biopsy by immunohistochemistry VGPR = very good partial response - serum M-protein detectable by immunofixation but not on electrophoresis or >=90% reduction in serum M-protein CA = partial response - >=50% reduction of serum M-protein If the M-protein is unmeasurable, a >=50% decrease in the difference between involved and uninvolved FLC levels is required in place of the M-protein criteria. Minimal response - >=25% but <=49% reduction of serum M-protein Complications/Late Effects These are symptoms/side effects that you could experience following an autologous stem cell transplant: low red blood cell count (anemia) low white blood cell count (neutropenia) low platelet count (thrombocytopenia) tingling, numbness or pain in hands/feet (neuropathy) memory or concentration loss change in weight insomnia nausea/vomiting sexual problems buildup of fluid in arms, legs or neck (lymphedema) menopausal symptoms fatigue muscle/joint pain loss of appetite skin changes cardiac dysfunction pulmonary dysfunction emotional difficulties endocrine abnormalities infertility secondary malignancies Follow up Schedule of Follow-Up Visits and Tests Coordinating Provider Exam When/How often Primary Care Physician (PCP): Jeanette Mello PA History & physical and review of symptoms, vital signs including BP, lung exam Labs (CBC/diff, retic count, CMP, fasting glucose, fasting lipid profile, thyroid panel, PSA if applicable) Mammogram (if indicated) Colonoscopy Yearly Yearly after age 40 Every 5-10 years (or more often if recommended by GI), ages 45 to 75 based on personal and family history. Beginning at least: age 45, 10 years prior to diagnosis of GI cancer in close relative OR sooner per GI recommendation (whichever comes first) Bone Health: Edwin Feldman MD Zometa (initiated 06/19/23)-- Continued monthly x12 doses, then completed quarterly x4 doses. - For a total duration of 2 years Vitamin D level Calcium and Vitamin D supplementation: May be required based on levels For 2 years total duration. - Notify MD and dentist if you need dental extractions as Zometa/Xgeva should be held before and after Yearly Medical Oncologist: Edwin Feldman MD Myeloma Treatment- Dual maintenance therapy recommended. Revlimid 10mg day 1-21 out of a 28 day cycle AND Velcade 1.0mg/m2 subq Every other week (Dose reduced for PN) Close monitoring for safety and efficacy recommended while on maintenance therapy. BMT Physician: Martin Pacheco MD Return office visit as desired or with concern for progressive disease Dentist Dental exam Every 6 to 12 months Premedicate for cleaning: Not indicated per BMT Smoking Cessation Discuss options Every visit Patient Self skin and breast/testicular exam Wear sunscreen! Monthly Revaccination Revaccination schedule post stem cell transplant: COVID Revaccination Schedule Post Transplant, to begin after Day 90 Updated ([id number] Formula) mRNA vaccine Number of updated ([id number] Formula) mRNA doses indicated Interval between doses Moderna 3 Dose 1 and Dose 2: 4 weeks Dose 2 and Dose 3: At least 4 weeks [employer] 3 Dose 1 and Dose 2: 3 weeks Dose 2 and Dose 3: At least 4 weeks Patient is considered unvaccinated. - For auto: Begin below vaccines 6 months post transplant - NO LIVE VACCINES recommended while on dual maintenance chemotherapy. Vaccines per CDC guidelines, follow CDC recommendations for adjustments to table below: Series 1 >6 mo Series 2 >8 mo Series 3 >12 mo Series 4 >15 mo Series 5 >18 mo Series 6 >24 mo Series 7 >27 mo Ongoing Influenza Inactivated or recombinant only; No LIVE vacc Yearly at the start of flu season; if > Day 90 post transplant Prevnar-20 x x x x DTaP x x Tetanus every 10 years Tdap x Hib x x x Hep B x x x Check Hep B surface Ab (goal >10) Shingrix x x Polio x x x bDTaP (diphtheria tetanus pertussis vaccine) is preferred, however, if only Tdap (tetanus toxoid-reduced diphtheria-toxoid reduced acellular pertussis vaccine) is available (for example, because DTaPis not licensed for adults), administer Tdap. Acellular pertussis vaccine is preferred, but the whole-cell pertussis vaccine should be used if it is the only pertussis vaccine available. cONLY administer MMR if patient is >= 24 months post-transplant, off chemotherapy, no IVIG x11 months, and seronegative for measles, mumps, and/or rubella dHBV recommended for all patients post-transplant. Consider addition of Hepatitis A in at risk patients. May consider combination Hepatitis A and B vaccination (Twinrix??) if both are indicated. Recommendations Ms Zayas is 99 days post ASCT. We will complete a 100 day re-evaluation today, including a bone marrow biopsy. Following the results of her 100 day re- evaluation, she will return to the care of her primary oncologist Dr. Feldman. Due to high risk cytogenetics, the patient is recommended dual maintenance chemotherapy with Revlimid and Velcade. Revlimid should be dosed at 10 mg daily days 1-21 of a 28 day cycle. Velcade should be dose reduced to 1 milligram/meter squared subcutaneous every other week. Close monitoring for safety and efficacy while on maintenance chemotherapy is recommended. Ms. Zayas should be closely monitored for worsening neuropathy while on Velcade, and dose adjustments are encouraged. Patient should also continue HSV prophylaxis while on a PI. In addition to post-transplant maintenance chemotherapy, the patient should also continue bisphosphonate therapy for a total of two years. Repeat COVID vaccination. A flu shot is OK to give, should be given in season. Other Post transplant revaccinations should be completed starting at 6 months post transplant. These are due to be started after 04/15/24. Please see above survivorship care plan for additional information, including vaccination table with recommendations and intervals. No live vaccines are recommended for patient while on dual maintenance therapy. Ms. Zayas's return office visit will remain open with us at this time. However, we are happy to assist in her care in the future if necessary. The patient will return to at this time for continuation of care on maintenance therapy. She and her family know to contact us with any questions,concerns, or changes in condition. Nirali Romo NP Resources Resources you may be interested in: [employer] Cancer Survivors Network Cancer Survivors Network is a vibrant community established by people just like you whose lives have been touched by cancer. We hope you'll find strength and inspiration from our personal stories, discussions and expressions of caring. http://csn.cancer.org Be the Match We provide support and resources for all patients, caregivers and familiars throughout the transplant process. You can turn to us for one-on-one support and educational resources to help you navigateyour transplant journey. https://bethematch.org National Cancer [place] Accurate, up-to-date, comprehensive cancer information from the U.S. government's principal agency for cancer research. http://www.cancer.gov Eating Hints?? Before, During, and After Cancer Treatment https://www.cancer.gov/publication/patient-education/eating-hints National Coalition for Cancer Survivorship We advocate for quality cancer care for all individuals touched by cancer. https://canceradvocacy.org National Heart, Lung and Blood [place] We provide helpful information and resources designed to help your family stay healthy. https://www.nhlbi.gov/health/educational/webcan/ [facility] A National Cancer [place] [facility] http://www.[place].[facility] Multiple Myeloma Research Foundation (MMRF) Charitable organization dedicated to multiple myeloma. The MMRF provides resources to connect patients with the people, institutions, treatments, and clinical trials they need. https://themmrf.org/ International Myeloma Foundation (IMF) The IMF is dedicated to improving the quality of life of myeloma patients while working toward prevention and a cure through four founding principles: Research, Education, Support, and Advocacy. https://www.myeloma.org/ Myeloma Crowd The Myeloma Crowd is a division of the [employer], a patient-driven, nonprofit organization that empowers patients with rare diseases at each step of her disease journey--from diagnosis, through Education, care and on to a cure. https://www.myelomacrowd.org/
--- OUTSIDE RECORDS SUMMARY | 2025-05-19 15:05 | XMS_ITS | Clinical Summary ---
Author Organization [facility] Address [address] [place] [address] Care Team Providers Care Receiving Clerk Name Role Phone Jeanette Mello PA-C Primary Care Provider [phone] Source Comments [facility],non-owned Affiliates and Associated Physician Practices is amultiple site organization consisting of ambulatory clinics and hospital sitesin [place], [place], [place] and [place]. This disclosure is being madepursuant to the Care Everywhere program and may not contain all information available regarding this patient. Last updated 18.[employer] [facility] Allergies No known active allergies Medications * Be aware that medications may not be up to date on this document. Alwaysverify current medications with the patient. sertraline (ZOLOFT) 50 MG tablet TK 1 T PO QD 6 06/24/2019 Active raNITIdine (ZANTAC) 150 MG tablet TK 1 T PO BID 1 05/10/2019 Active loratadine (CLARITIN) 10 MG tablet Take 10 mg by mouth once daily 07/20/2019 Active furosemide (LASIX) 20 MG tablet Take 20 mg by mouth once daily 0 07/10/2019 Active baclofen (LIORESAL) 10 MG tablet Take 10 mg by mouth once daily 3 07/10/2019 Active carvedilol (COREG) 12.5 MG tablet Take 12.5 mg by mouth once daily 3 07/10/2019 Active WIXELA INHUB 250-50 MCG/DOSE inhaler 07/20/2019 Active gabapentin (NEURONTIN) 300 MG capsule Take 300 mg by mouth 3 times daily 3 07/10/2019 Active lisinopril-hydro CHLOROthiazide (PRINZIDE; ZESTORETIC) 20-25 MG tablet TK 1 T PO D 6 07/10/2019 A ctive albuterol HFA (PROVENTIL;ABA EVER;PROAIR) 108 (90 Base) MCG/ACT inhaler INL 2 PFS PO Q 6 H 12 05/28/2019 Active amLODIPine (NORVASC) 10 MG tablet TK 1 T PO QD 6 07/10/2019 Active atorvastatin (LIPITOR) 10 MG tablet TK 1 T PO QD 6 06/09/2019 Active Active Problems Problem Noted Date Diagnosed Date Essential hypertension 07/23/2019 Diabetes mellitus 07/23/2019 Overview (07/23/2019): Pre-diabetic, diet controlled Social History Tobacco Use Types Packs/Day Years Used Date Smoking Tobacco: Never Smokeless Tobacco: Never Comments Unknown Sex and Gender Information Value Date Recorded Sex Assigned at Not on file Legal Sex Female 6:49 PM REGISTERED PHYSICAL THERAPIST Gender Identity Not on file Sexual Orientation Not on file Last Filed Vital Signs Vital Sign Reading Time Taken Comments Blood Pressure 138/82 07/23/2019 10:20 AM REGISTERED PHYSICAL THERAPIST Pulse 84 07/23/2019 10:20 AM REGISTERED PHYSICAL THERAPIST Temperature - - Respiratory Rate - - Oxygen Saturation 91% 07/23/2019 10:20 AM REGISTERED PHYSICAL THERAPIST Inhaled Oxygen Concentration - - Weight 94.3 kg (208 lb) 07/23/2019 10:20 AM REGISTERED PHYSICAL THERAPIST Height - - Body Mass Index - - Plan of Treatment Health Maintenance Due Date Last Done Comments BONE DENSITY TESTING 1955 COLOGUARD (AGES 45-75) - COL ON CA SCREENING 1955 COLON MONITORING 1955 COLONOSCOPY - COLON CA SCREENING 1955 CT COLONOGRAPHY - COLON CA SCREENING 1955 Colorectal Cancer Screening 1955 FIT - COLON CA SCREENING 1955 FLEX SIG - COLON CA SCREENING 1955 MAMMOGRAM 1955 HEPATITIS C SCREENING 04/30/1973 DIABETES-SERUM CREATININE 1973 DTAP/TDAP/TD VACCINES (1 - Tdap) 1974 PNEUMOCOCCAL VACCINE 50+ (1 of 2 - PCV) 1974 ZOSTER VACCINE (1 of 2) 2005 DIABETES RETINOPATHY SCREENING 07/23/2019 DIABETES-FOOT EXAM WITH MONOFILAMENT 07/23/2019 DIABETES-HGB A1C 07/23/2019 COVID-19 VACCINE (1 - 2023-2 5 season) 2024 DEPRESSION SCREENING 09/16/2024 DIABETES - URINE PROTEIN SCREENING 09/16/2024 INFLUENZA VACCINE (#1) 2025 Respiratory Syncytial Virus (RSV) Vaccine Pt: or over 60 yrs (1 - 1-dose 75+ series) 2030 HEPATITIS B VACCINE Aged Out No longe r eligible based on patient's age to complete this topic HIB VACCINE Aged Out No longer eligi ble based on patient's age to complete this topic HPV VACCINE Aged Out No longer eligi ble based on patient's age to complete this topic MENINGOCOCCAL (Group B) VACC INE SHARED DECISION-MAKING Aged Out No longer eligibl e based on patient's age to complete this topic MENINGOCOCCAL GROUPS A/C/Y/W VACCINE Aged Out No longer eligible b ased on patient's age to complete this topic Insurance [facility] Care Teams Receiving Clerk Relationship Specialty Start Date End Date Jeanette Mello PA-C [address] [place] [address] PCP - General Physician Air Chief Marshal 07/23/19
--- OUTSIDE RECORDS SUMMARY | 2025-05-19 15:05 | XMS_ITS | Encounter Summary ---
Author Organization [facility] Healthcare Address [address] [place] [address] Care Team Providers Care Wind Turbine Performance Engineer Name Role Phone MelloJeanette ziegler JOSELINE Primary Care Provider [phone] Edwin Feldman MD Unavailable [phone] Encounter Details Date Type Department Care Team (Late st Contact Info) Description 09/25/2023 Treatment [facility] PATHOLOGY [address] [place] [address] Toby Cuellar, [id number] [place] [address] Social History Tobacco Use Types Packs/Day Years Used Date Smoking Tobacco: Former Cigarettes 0.8 45 0 01/1978 - 01/2023 Smokeless Tobacco: Never Personal Safety Answer Date Recorded Getting School Help Needed Not on file 08/29 Comments Unknown Sex and Gender Information Value Date Recorded Sex Assigned at Not on file Legal Sex Female 7:44 PM RESTAURANT MGR Gender Identity Not on file Sexual Orientation Not on file documented as of this encounter Progress Notes * Toby Cuellar DO - 09/25/2023 2:29 PM CST Attestation: I have personally reviewed the antibody result and agree with the interpretation contained in this written blood bank report. Ramu Zheng MD Transfusion Medicine Blood Bank Note Patient Information: ABO/Rh: A positive Antibody screen: Positive Previous antibodies: No known antibodies Antibodies identified: anti-CD38 Additional testing performed: None Relevant Patient History: Marion Zayas is a 68 y.o. woman with multiple myeloma receiving daratumumab therapy. She has received transfusions in the past for anemia. Testing Information: The antibody screen was positive. Antibody identification demonstrated antibodies against CD38 in the patient's plasma. Additional testing was not performed. Monoclonal IgG antibodies directed against CD38, such as daratumumab and others, can cause reactivity in blood bank testing due to CD38 expression on red blood cells. Blood bank testing was performedwith red blood cells treated with DTT, which removes cell surface CD38 and allows detection of common clinically significant antibodies except those against the K antigen. (TRANSFUSION 2015;55;[id number]) All other common, clinically significant antibodies have been ruled out. Clinical Relevance: Presence of this antibody requires that additional testing be performed and this may result in additional time for blood product selection when ordered for transfusion. Therapeutic Relevance: ABO/Rh and crossmatch compatible red blood cell units negative for the K antigen will be provided for future transfusions as long as anti-CD38 is present in the patient's plasma. Crossmatch compatibility will be performed using DTT treated donor red blood cells. Approximately 91% of ABO compatible units from the donor population are expected to be compatible, with approximately 1-2 units will need to be screened to find one compatible unit for this patient. Consider red blood cell genotyping if applicable to determine the patient's K antigen expression toguide future transfusions. Contact Information: Please contact the [facility] Transfusion Medicine Service at (option 1) with any questions. This report has been prepared by: Toby Cuellar DO AURANT MGR AURANT MGR documented in this encounter Plan of Treatment Not on file documented as of this encounter Visit Diagnoses Not on filedocumented in this encounter Additional Health Concerns Infection Onset Date Last Indicated Resolved Time Diarrhea 10/20/2023 10/20/2023 10/22/2023 8:56 AM RESTAURANT MGR Diarrhea 10/26/2023 10/26/2023 10/26/2023 3:02 PM RESTAURANT MGR Diarrhea 10/31/2023 10/31/2023 10/31/2023 3:14 PM RESTAURANT MGR COVID: Suspected 11/23/2023 11/23/2023 11/24/2023 1:02 AM RESTAURANT MGR documented as of this encounter Care Teams Wind Turbine Performance Engineer Relationship Specialty Start Date End Date Jeanette Mello PA PCP - General 08/23/20 Edwin Feldman MD [address] [id number] Referring Physician Hematology 07/30/23 documented as of this encounter
[2025-05-19 15:20] LABS: Lipase 68 U/L (23-300); Magnesium 1.7 mg/dL (1.6-2.3)
--- NOTE | 2025-05-19 15:25 | ED.GENADULT ---
HPI - General Adult General Chief complaint: Shortness of Breath/Dyspnea Stated complaint: sob, fever Time Seen by Provider: 05/19/25 14:05 History of Present Illness HPI narrative: Patient is a 70-year-old female who presents emergency department chief complaint of cough fevers shortness of breath and chest discomfort. The patient states been ongoing for several days reports that she had a fever to 102 home patient reports she has prior history of COPD reports she has history of multiple myeloma the patient was sent from the infusion center to the emergency department for evaluation Related Data Home Medications ?Medication ?Instructions ?Recorded ?Confirmed ?Last Taken ?Type albuterol sulfate 90 mcg/actuation 2 puff inhalation Q4-5H PRN Dyspnea 04/23/23 08/11/24 Unknown History aerosol inhaler amlodipine 10 mg tablet 10 mg PO QAM 04/23/23 08/11/24 Unknown History baclofen 10 mg tablet 10 mg PO TID PRN Muscle Spasm 04/23/23 08/11/24 Unknown History budesonide-formoterol HFA 160 2 puff inhalation Q12H 04/23/23 08/11/24 Unknown History mcg-4.5 mcg/actuation aerosol inhaler (Symbicort) carvedilol 3.125 mg tablet 3.015 mg PO BID 04/23/23 08/11/24 Unknown History ferrous sulfate 325 mg (65 mg 325 mg PO DAILY 04/23/23 08/11/24 Unknown History iron) tablet (FeroSul) gabapentin 300 mg capsule 600 mg PO TID 04/23/23 08/11/24 Unknown History lenalidomide 25 mg capsule 25 mg PO DAILY 04/23/23 08/11/24 Unknown History (Revlimid) omeprazole 40 mg capsule,delayed 40 mg PO DAILY 04/23/23 08/11/24 Unknown History release sertraline 100 mg tablet 100 mg PO HS 04/23/23 08/11/24 Unknown History hydrocodone 10 mg-acetaminophen 1 tablet PO Q6H PRN Pain 08/06/23 08/11/24 Unknown History 325 mg tablet fexofenadine 180 mg tablet 180 mg PO DAILY PRN allergy 11/18/24 11/18/24 Unknown History (Ginny Allergy) symptoms acyclovir 400 mg tablet 400 mg PO Q12H 12/30/24 12/30/24 Unknown History Allergies Allergy/AdvReac Type Severity Reaction Status Date / Time No Known Allergies Allergy Verified 05/19/25 13:08 Review of Systems Review of Systems: A 10 system review of systems was completed on the patient and is negative except for what is stated in the HPI. Nursing and ancillary documentation was reviewed. [facility] Past Medical History Medical History Multiple myeloma GERD (gastroesophageal reflux disease) ARLENE (obstructive sleep apnea) CPAP COPD (chronic obstructive pulmonary disease) History of heart attack Hypertension Hyperlipidemia Social History Social History Smoking packs per day: 0.5 Smoking cigarettes per day: 10.0 Years smoked: 43 Smoking pack-years: 21.50 Smoking status: Former smoker Tobacco type: cigarettes Smoking end date: 01/28/23 Substance use: never Living arrangements: with family Additional living arrangements comments: SON Spiritual care concerns: No Exam Narrative: GENERAL: Well-appearing, well-nourished, and in no acute distress. HEAD: Normocephalic, atraumatic. EYES: PERRLA and EOMI. ENT: Nares clear, no rhinorrhea or epistaxis. Mucous membranes moist. NECK: Supple. CHEST: Clear to auscultation. No respiratory distress. There is a port present in the right anterior chest no redness HEART: Regular rate and rhythm. No murmur heard. Normal peripheral pulses. ABDOMEN: Soft, nontender, nondistended, normal active bowel sounds. EXTREMITIES: Normal range of motion. No edema. SKIN: Warm, dry, no rash. NEURO: No focal deficits. Alert and oriented x3. PSYCH: Normal mood and affect. Course Vital Signs Vital signs: Vital Signs Pulse Oximetry 98 05/19/25 14:15 Oxygen Delivery Room Air 05/19/25 14:15 Temperature 36.7 C 05/19/25 14:44 Pulse Rate 55 L 05/19/25 14:44 Respiratory Rate 20 05/19/25 14:44 Blood Pressure 122/67 05/19/25 14:44 Pulse Oximetry 98 05/19/25 14:44 Oxygen Delivery Room Air 05/19/25 14:44 Medical Decision Making MDM Narrative Medical decision making narrative: Differential diagnosis includes pneumonia, sepsis, bacteremia, viral illness Laboratory studies were obtained on the patient showed a normal CBC CMP was within normal limits there was a slight elevation ALT BNP was 1 4 0 troponin was negative lipase was normal COVID flu and RSV were negative strep was negative Chest x-ray showed a left lower lobe infiltrate Vital Signs Vital Signs: Vital Signs Pulse Oximetry 98 05/19/25 14:15 Oxygen Delivery Room Air 05/19/25 14:15 Temperature 36.7 C 05/19/25 14:44 Pulse Rate 55 L 05/19/25 14:44 Respiratory Rate 20 05/19/25 14:44 Blood Pressure 122/67 05/19/25 14:44 Pulse Oximetry 98 05/19/25 14:44 Oxygen Delivery Room Air 05/19/25 14:44 Lab Data 05/19/25 14:07 05/19/25 14:07 Labs: Lab Results 05/19/25 05/19/25 05/19/25 Range/Units 14:07 14:49 15:13 WBC 6.5 (4.5-10.0) K/mm3 RBC 3.52 L (4.2-5.4) M/mm3 Hgb 10.9 L (12.0-15.0) g/dL Hct 31.8 L (37.0-47.0) % MCV 90.3 (80-100) fl MCH 31.0 (26-34) pg MCHC 34.3 (32-36) g/dl RDW 15.8 H (11.5-14.5) % Plt Count 306 (150-375) k/mm3 MPV 9.7 (7.4-10.4) fl Immature Gran % (Auto) 1.5 H (0-0.5) % Neut % (Auto) 54.1 (45.5-73.1) % Lymph % (Auto) 29.1 (18.3-44.2) % [place] % (Auto) 8.5 (2.6-8.5) % Eos % (Auto) 6.3 H (0-4.4) % Baso % (Auto) 0.5 (0.2-1.2) % Lymph # (Auto) 1.88 (0.9-3.2) K/mm3 [place] # (Auto) 0.6 (0.1-0.6) K/mm3 Eos # (Auto) 0.4 H (0-0.3) K/mm3 Baso # (Auto) 0.0 (0.0-0.1) K/mm3 Abs Immat Gran (auto) 0.10 H (0.00-0.031) K/mm3 Absolute Neuts (auto) 3.5 (1.3-6.7) K/mm3 Absolute Nucleated RBC 0.000 (0.0-0.012) K/mm3 Nucleated RBC % 0.0 (0.0-0.2) % PT 22.0 H (11.1-14.7) Seconds INR 2.0 APTT 29.5 (22.3-36.8) Seconds Sodium 138 (137-145) mmol/L Potassium 4.1 (3.4-5.0) mmol/L Chloride 105 (98-107) mmol/L Carbon Dioxide 22 (22-30) mmol/L Anion Gap 11 (4-12) mmol/L BUN 16 (7-17) mg/dL Creatinine 0.84 (0.7-1.0) mg/dL Estim Creat Clear Calc Not Reportable Estimated GFR > 60 (59 - ) Glucose 91 (65-110) mg/dL Lactic Acid 1.0 (0.7-2.0) mmol/L Calcium 9.3 (8.4-10.2) mg/dL Magnesium 1.7 (1.6-2.3) mg/dL Total Bilirubin 0.3 (0.2-1.3) mg/dL AST 33 (14-36) U/L ALT 65 H (6-35) U/L Alkaline Phosphatase 149 H (38-126) U/L Troponin I < 0.012 (0.000-0.034) ng/mL NT-Pro-B Natriuret Pep 140 H (19.9-100) pg/mL Total Protein 8.3 H (6.3-8.2) g/dL Albumin 4.3 (3.5-5.1) g/dL Lipase 68 (23-300) U/L Influenza A (RT-PCR) Negative (Negative) Influenza B (RT-PCR) Negative (Negative) RSV (RT-PCR) Negative (Negative) SARS-CoV-2 RNA (RT-PCR) Negative (Negative) Group A Strep (PCR) Not detected (Negative) Discharge Plan Discharge Clinical Impression: Left lower lobe pneumonia Patient Disposition: Home Condition: Stable Instructions: Antibiotic Form, Community Acquired Pneumonia (ED) Patient Language: Yakut Prescriptions: New cefdinir 300 mg capsule 300 mg PO Q12H 7 Days Qty: 14 0RF doxycycline hyclate 100 mg tablet 100 mg PO BID Qty: 14 0RF No Action hydrocodone-acetaminophen 10-325 mg Tablet 1 tablet PO Q6H PRN (Reason: Pain) fexofenadine [Ginny Allergy] 180 mg tablet 180 mg PO DAILY PRN (Reason: allergy symptoms) acyclovir 400 mg tablet 400 mg PO Q12H Patient Comments: . sertraline 100 mg tablet 100 mg PO HS carvedilol 3.125 mg tablet 3.015 mg PO BID Patient Comments: . baclofen 10 mg tablet 10 mg PO TID PRN (Reason: Muscle Spasm) Patient Comments: . amlodipine 10 mg tablet 10 mg PO QAM Patient Comments: . ferrous sulfate [FeroSul] 325 mg (65 mg iron) tablet 325 mg PO DAILY Patient Comments: . gabapentin 300 mg capsule 600 mg PO TID albuterol sulfate 90 mcg/actuation HFA aerosol inhaler 2 puff INHALATION Q4-5H PRN (Reason: Dyspnea) Patient Comments: ...... lenalidomide [Revlimid] 25 mg capsule 25 mg PO DAILY Patient Comments: held x 1 month til 11/18/24. budesonide-formoterol [Symbicort] 160-4.5 mcg/actuation Hfa Aerosol Inhaler 2 puff INHALATION Q12H Patient Comments: . omeprazole 40 mg Capsule,Delayed Release(Dr/Ec) 40 mg PO DAILY Follow-up/Referrals: PHYSICIAN NOT ON STAFF,NONSTAFF [Primary Care Provider] Time of Disposition: 16:04
[2025-05-19 15:28] LABS: Strep Group A RT-PCR NOT DETECTED (Negative)
[2025-05-19 15:40] LABS: Influenza A QL RT-PCR Negative (Negative); Influenza B QL RT-PCR Negative (Negative); RSV RNA, RT-PCR Negative (Negative); SARS-CoV-2 RNA PCR Negative (Negative)
--- OUTSIDE RECORDS SUMMARY | 2025-05-19 16:03 | XMS_ITS | Encounter Summary ---
Author Organization [facility] Address [address] [place] [address] Care Team Providers Care Washer Cutter Name Role Phone Unavailable Primary Care Provider Unavailabl e Encounter Details Date Type Department Care Team (Late Contact Info) Description 05/17/2025 Orders Only [facility] Oncology and Hematology - [place] [address] [facility] [address] [place] [address] Edwin Feldman MD [address] [facility] [address] [place] [address] Multiple myeloma not having achieved [...] Description 06/02/2025 9:30 AM CDT Office Visit [facility] Oncology and Hematology - [place] [address] [facility] [address] [place] [address] Edwin Felmdan MD [address] [facility] [address] [place] [address] documented as of this encounter Visit Diagnoses Diagnosis Multiple myeloma not having achieved remission (CMS/HCC) Multiple myeloma, without mention of having achieved remission documented in this encounter
--- OUTSIDE RECORDS SUMMARY | 2025-05-19 16:03 | XMS_ITS | Encounter Summary ---
Author Organization [facility] Address [address] [place] [address] Phone Care Team Providers Care Armature Varnisher Name Role Phone Jeanette Mello Primary Care Provider [phone] Edwin Feldman MD Unavailable [phone] Encounter Details Date Type Department Care Team (Late st Contact Info) Description 10/07/2023 Telephone [facility] Oncology [facility] 7th [place] [address] [place] [address] Vianney Perez Social History Tobacco [...] on file Legal Sex Female 7:44 PM FLAT DRIER Gender Identity Not on file Sexual Orientation [...] CBC with auto differential (10/08/2023 7:17 AM FLAT DRIER) WBC 30.3(H) 3.8 - 9.8 K/cumm [facility] Comment:Testing performed by : [facility], [address] [place] [phone] Hgb 10.6(L) 12.1 - 15.1 g/dL JAY [facility] Comment:Testing performed by : [facility], [address] [place] [phone] Hct 31.8(L) 36.1 - 44.3 % JAY [facility] Comment:Testing performed by : [facility], [address] [place] [phone] Plt 146 140 - 440 K/cumm JAY [facility] Comment:Testing performed by : [facility], [address] [place] [phone] MPV 7.5 6.8 - 10.4 fL JAY [facility] Comment:Testing performed by : [facility], [address] [place] [phone] RBC 3.69(L) 3.90 - 5.00 M/cumm JAY [facility] Comment:Testing performed by : [facility], [address] [place] [phone] MCV 86.3 80.0 - 97.6 fL JAY [facility] Comment:Testing performed by : [address] [phone] MCH 28.8 26.7 - 33.7 pg JAY [facility] Comment:Testing performed by : [facility], [address] [place] [phone] MCHC 33.4 32.7 - 35.5 g/dL JAY [facility] Comment:Testing performed by : [facility], [address] [place] [phone] RDW CV 16.4(H) 11.8 - 14.6 % JAY [facility] Comment:Testing performed by : [facility], [address] [place] [phone] NRBC abs 0.03(H) 0.00 - 0.01 K/cumm JAY [facility] Comment:Testing performed by : [address] [phone] Blood 10/08/2023 7:17 AM FLAT DRIER 10/08/2023 7:22 AM FLAT DRIER us Martin Pacheco MD LAB BLOOD ORDERABLES Final Resul t JAY [facility] [place] [address] documented in this encounter Visit Diagnoses Diagnosis Autologous donor of stem cells- Primary Multiple myeloma not having achieved remission (HCC) documented in this encounter Additional Health Concerns Infection Onset Date Last Indicated Resolved Time Diarrhea 10/20/2023 10/20/2023 10/22/2023 8:56 AM FLAT DRIER Diarrhea 10/26/2023 10/26/2023 10/26/2023 3:02 PM FLAT DRIER Diarrhea 10/31/2023 10/31/2023 10/31/2023 3:14 PM FLAT DRIER COVID: Suspected 11/23/2023 11/23/2023 11/24/2023 1:02 AM FLAT DRIER documented as of this encounter Care Teams Armature Varnisher Relationship Specialty Start Date End Date Jeanette Mello PA PCP - General 08/23/20 Edwin Feldman MD [address] [address] Referring Physician Hematology 07/30/23 documented as of this encounter
--- OUTSIDE RECORDS SUMMARY | 2025-05-19 16:03 | XMS_ITS ---
Author Organization [facility] Address Formerly [facility] [place] [address] Care Team Providers Care Digital Marketing Apprentice Name Role Phone Jeanette Mello Primary Care Provider [phone] Edwin Feldman MD Unavailable [phone] Active Problems Patient Care Coordination No [...] Medical Assistants Post-Discharge Follow-Up Living Situation/Distance from [place], [place]= 1hr Caregiver son Lab/Transfusion Frequency Venous [...] home f/up in clinic Resume HH at [place] Assessment & Plan (11/24/2023 4:54 AM CDT): [...] 10/27/2023 Assessment & Plan (10/28/2023 10:58 AM ORE WASHER): - 2/2 hypervolemic but also with possible intravascular depletion iso diarrhea and poor PO intake. Na 153 (10/27). - Improving with free water intake, D5 1/2 NS - Trend Na - Plan for Lasix once diarrhea and PO intake improve Neutropenic fever 10/25/2023 Assessment & Plan (10/28/2023 4:33 PM ORE WASHER): - 2/2 Typhlitis, Corynebacterium Jeikeium Bacteremia - [...] 10/25/2023 Assessment & Plan (10/25/2023 7:46 AM ORE WASHER): - Replace per protocol Neutropenic typhlitis 10/24/2023 Assessment & Plan (10/25/2023 7:31 AM ORE WASHER): - Dx clinically with abdominal pain, diarrhea, neutropenia (10/24) - Lactate 0.8 (10/24) - See NF Hypokalemia 10/23/2023 Assessment & Plan (10/23/2023 8:08 AM ORE WASHER): - likely 2/2 GI loss - Replace per protocol Acute hypoxic respiratory failure 10/23/2023 Assessment & Plan (10/28/2023 10:54 AM ORE WASHER): - 2/2 acute pulmonary edema, pleural effusions from IVF, ARLENE - CPAP QHS and naps - CT CAP - volume overload with moderate pleural effusions, mild pulmonary edema, small volume ascites - Plan for Lasix once Grade 3 mucositis with poor PO intake and chemo-induced diarrhea improve ARLENE (obstructive sleep apnea) 10/23/2023 Assessment & Plan (10/23/2023 11:09 AM ORE WASHER): - CPAP QHS and naps Pancytopenia due to antineoplastic chemotherapy 10/22/2023 Assessment & Plan (10/22/2023 8:00 AM ORE WASHER): - Transfuse per BMT protocol Chemotherapy induced diarrhea 10/22/2023 Assessment & Plan (10/22/2023 8:02 AM ORE WASHER): - c. Diff negative - Imodium prn Mucositis due to chemotherapy 10/22/2023 Assessment & Plan (10/28/2023 10:50 AM ORE WASHER): - Grade 3, difficulty tolerating PO, requiring IV narcotics - CT CAP (10/25) - circumferential esophageal wall thickening involving the mid to distal esophagus - GI cocktail (10/23) - MMW, saline rinses - Changed meds to IV where able - Dilaudid QUALITY COMPLIANCE COORDINATOR (10/24-10/28) --> Dilaudid IV prn Bacteremia 10/21/2023 Assessment & Plan (10/28/2023 4:32 PM ORE WASHER): - Patient's sample from cryo sample positive [...] protocol Assessment & Plan (10/24/2023 10:54 AM ORE WASHER): - 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 [...] 10/14/2023 Assessment & Plan (10/24/2023 10:34 AM ORE WASHER): - 2/2 MM - MRI (02/20/23) w/ L2 compression. - Oxycodone PRN (takes norc 10-325 at home) Hypertension, essential 10/14/2023 Assessment & Plan (11/26/2023 6:19 AM CDT): Continue Coreg, resume amlodipine At discharge pt will resume home lasix Assessment & Plan (11/24/2023 4:57 AM CDT): Continue Coreg, hold amlodipine pending blood pressure trend Assessment & Plan (10/28/2023 10:51 AM ORE WASHER): - Coreg, Amlodipine Autologous donor of stem cells 09/20/2023 Multiple myeloma not having achieved remission 1 10/30/2022 Cancer Staging:Clinical stage from 02/19/2023:RISS Stage II(Fafv-6-ukjxyldmzymln (mg/L): 3.9, Albumin (g/dL): 2.2, ISS: Stage [...] Lion MD Linked Problems Multiple myeloma in [facility] n (HCC) Treatment Medications No medications scheduled. [...] from the original note were not included. [place] [phone] This Survivorship Care Plan is a cancer [...] Contact Information: Referring Provider Edwin Feldman MD [phone] Primary Care Physician Jeanette Mello PA [phone] BMT Physician/ Advanced Practice Provider Martin Pacheco MD/Nirali Romo [facility] [phone] Tire Beader Maker Hina Philippe RN [phone] Roland Rand [facility] [phone] Oncology History Overview Note 04/07/23: DVRD x4 cycles, then DVD x1 cycle 10/16/23: (planned) ASCT Multiple myeloma not having achieved remission (CMS/HCC) ([facility]) 08/29/2023 Initial Diagnosis Multiple myeloma not having achieved remission (CMS/HCC) ([facility]) Treatment Summary Cancer Diagnosis Information Multiple myeloma not having achieved remission (CMS/HCC) ([facility]) 08/29/2023 Initial Diagnosis Multiple myeloma not having achieved remission (CMS/HCC) ([facility]) Patient Active Problem List Diagnosis Multiple myeloma not having achieved remission (CMS/HCC) ([facility]) Autologous donor of stem cells Multiple myeloma in remission (CMS/HCC) ([facility]) Chronic pain syndrome Hypertension, essential Bacteremia Pancytopenia [...] Clinical stage from 02/19/2023: RISS Stage II (Didv-5-wqfhcalxvjdte (mg/L): 3.9, Albumin (g/dL): 2.2, ISS: Stage [...] Lab Results Lab Results Component Value Date [id number] 82 09/24/2023 DLCOPREPRED 57 09/24/2023 TSH 0.69 [...] M 40 - 230 mg/dL <25.0 <25 Manley/Lambda light chains free with ratio 0.26 - 1.65 0.26 - 1.65 >0.78 >0.73 1.69 Manley light chain, free 0.33 - 1.94 mg/dL [...] electrophoresis or >=90% reduction in serum M-protein AR = partial response - >=50% reduction of [...] Transplant, to begin after Day 90 Updated ([id number] Formula) mRNA vaccine Number of updated ([id number] Formula) mRNA doses indicated Interval between doses Moderna 3 Dose 1 and Dose 2: 4 weeks Dose 2 and Dose 3: At least 4 weeks FreedomPop 3 Dose 1 and Dose 2: 3 [...] Resources Resources you may be interested in: [employer] Cancer Survivors Network Cancer Survivors [...] you navigateyour transplant journey. https://bethematch.org National Cancer [place] Accurate, up-to-date, comprehensive cancer information from the U.S. government's principal agency for cancer research. http://www.cancer.gov Eating Hints?? Before, During, and After Cancer Treatment https://www.cancer.gov/publication/patient-education/eating-hints National Coalition for Cancer Survivorship We advocate for quality cancer care for all individuals touched by cancer. https://canceradvocacy.org National Heart, Lung and Blood [place] We provide helpful information and resources designed to help your family stay healthy. https://www.nhlbi.gov/health/educational/webcan/ [facility] A National Cancer [place] [facility] http://www.sitesnowflake.[facility] Multiple Myeloma Research Foundation (MMRF) Charitable [...] Myeloma Crowd is a division of the [employer], a patient-driven, nonprofit organization that empowers patients with rare diseases at each step of her disease journey--from diagnosis, through Education, care and on to a cure. https://www.myelomacrowd.org/
--- OUTSIDE RECORDS SUMMARY | 2025-05-19 16:03 | XMS_ITS | Clinical Summary ---
Author Organization [facility] [employer] Address [address] [place] [address] Care Team Providers Care Cloth Neutralizer Name Role Phone Jeanette Mello PA-C Primary Care Provider [phone] Source Comments [facility] [employer],non-owned Affiliates and Associated Physician Practices is amultiple site organization consisting of ambulatory clinics and hospital sitesin [place], [place], [place] and [place]. This disclosure is being madepursuant to the Care Everywhere program and may not contain all information available regarding this patient. Last updated 18.[employer] Allergies No known active allergies Medications * [...] on file Legal Sex Female 6:49 PM CUSTODIAN SUPERVISOR Gender Identity Not on file Sexual Orientation Not on file Last Filed Vital Signs Vital Sign Reading Time Taken Comments Blood Pressure 138/82 07/23/2019 10:20 AM CUSTODIAN SUPERVISOR Pulse 84 07/23/2019 10:20 AM CUSTODIAN SUPERVISOR Temperature - - Respiratory Rate - - Oxygen Saturation 91% 07/23/2019 10:20 AM CUSTODIAN SUPERVISOR Inhaled Oxygen Concentration - - Weight 94.3 kg (208 lb) 07/23/2019 10:20 AM CUSTODIAN SUPERVISOR Height - - Body Mass Index - [...] patient's age to complete this topic Insurance [facility] Care Teams Cloth Neutralizer Relationship Specialty Start Date End Date Jeanette Mello PA-C [address] [place] [address] PCP - General Physician Beet End Supervisor 07/23/19
--- OUTSIDE RECORDS SUMMARY | 2025-05-19 16:03 | XMS_ITS | Encounter Summary ---
Author Organization [facility] [employer] [facility] Address [address] [place] [address] Care Team Providers Care Accounting Systems Analyst Name Role Phone Unavailable Primary Care Provider Unavailabl e Encounter Details Date Type Department Care Team (Late Contact Info) Description 05/19/2025 Orders Only [facility] Oncology and Hematology - [place] [address] [facility] [address] [place] [address] Edwin Feldman MD [address] [place] [address] Social History Tobacco Use Types Packs/Day Years [...] Encounters Date Type Department Care Team (Late Contact Info) Description 06/02/2025 9:30 AM CDT Office Visit [facility] Oncology and Hematology - [place] [address] [place] [address] Edwin Feldman MD [address] [place] [address] documented as of this encounter Procedures Procedure Name Priority Date/Time Associated Diagnosis Comments BASIC METABOLIC PANEL Routine 05/19/2025 3:22 PM CDT COMPREHENSIVE METABOLIC PANEL Routine 05/19/2025 3:21 PM CDT documented in this encounter Results * BASIC METABOLIC PANEL (05/19/2025 3:22 PM CDT) Blood us Edwin Feldman MD CHEMISTRY ORDERABLES Final Resu lt * COMPREHENSIVE METABOLIC PANEL (05/19/2025 3:21 PM CDT) Blood us Edwin Feldman MD CHEMISTRY ORDERABLES Final Resu lt documented in this encounter Visit Diagnoses Not on filedocumented in this encounter
--- OUTSIDE RECORDS SUMMARY | 2025-05-19 16:03 | XMS_ITS | Encounter Summary ---
Author Organization [facility] Address [address] [place] [address] Care Team Providers Care Portable Pinch Riveter Name Role Phone MelloJeanette ziegler JOSELINE Primary Care Provider [phone] Edwin Feldman MD Unavailable [phone] Encounter Details Date Type Department Care Team (Late st Contact Info) Description 09/25/2023 Treatment [facility] PATHOLOGY [address] [facility]rd [place] [address] Toby Cuellar, [address] [facility] [address] [id number] [place] [address] Social History Tobacco Use Types Packs/Day Years Used Date Smoking Tobacco: Former Cigarettes 0.8 45 0 01/1978 - 01/2023 Smokeless Tobacco: Never Personal Safety Answer Date Recorded Getting School Help Needed Not on file 08/29 Comments Unknown Sex and Gender Information Value Date Recorded Sex Assigned at Not on file Legal Sex Female 7:44 PM DRAFTING SUPERVISOR Gender Identity Not on file Sexual [...] except those against the K antigen. (TRANSFUSION 2015;55;9538-3090) All other common, clinically significant antibodies have [...] future transfusions. Contact Information: Please contact the [facility] Transfusion Medicine Service at (option 1) with any questions. This report has been prepared by: Toby Cuellar DO TING SUPERVISOR TING SUPERVISOR documented in this encounter Plan of Treatment Not on file documented as of this encounter Visit Diagnoses Not on filedocumented in this encounter Additional Health Concerns Infection Onset Date Last Indicated Resolved Time Diarrhea 10/20/2023 10/20/2023 10/22/2023 8:56 AM DRAFTING SUPERVISOR Diarrhea 10/26/2023 10/26/2023 10/26/2023 3:02 PM DRAFTING SUPERVISOR Diarrhea 10/31/2023 10/31/2023 10/31/2023 3:14 PM DRAFTING SUPERVISOR COVID: Suspected 11/23/2023 11/23/2023 11/24/2023 1:02 AM DRAFTING SUPERVISOR documented as of this encounter Care Teams Portable Pinch Riveter Relationship Specialty Start Date End Date Jeanette Mello PA PCP - General 08/23/20 Edwin Feldman MD [address] [id number] Referring Physician Hematology 07/30/23 documented as of this encounter
--- OUTSIDE RECORDS SUMMARY | 2025-05-19 16:03 | XMS_ITS | Clinical Summary ---
Author Organization [facility] Address [facility] [place] [address] Care Team Providers Care Reception Interviewer Name Role Phone RiazJeanette JOSELINE Primary Care Provider [phone] Edwin Feldman MD Unavailable [phone] Allergies No known active allergies Medications [...] Medical Assistants Post-Discharge Follow-Up Living Situation/Distance from [facility], [place] 1hr Caregiver son Lab/Transfusion Frequency Venous [...] home f/up in clinic Resume HH at in Assessment & Plan (11/24/2023 4:54 AM CDT): [...] 10/27/2023 Assessment & Plan (10/28/2023 10:58 AM GOAT DRIVER): - 2/2 hypervolemic but also with possible intravascular depletion iso diarrhea and poor PO intake. Na 153 (10/27). 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 Assessment & Plan (10/25/2023 7:31 AM GOAT DRIVER): - Dx clinically with abdominal pain, diarrhea, neutropenia (10/24) - Lactate 0.8 (10/24) - See NF Hypokalemia 10/23/2023 Assessment & Plan (10/23/2023 8:08 AM GOAT DRIVER): - likely 2/2 GI loss - Replace per protocol Acute hypoxic respiratory failure 10/23/2023 Assessment & Plan (10/28/2023 10:54 AM GOAT DRIVER): - 2/2 acute pulmonary edema, pleural effusions from IVF, ARLENE - CPAP QHS and naps - CT CAP - volume overload with moderate pleural effusions, mild pulmonary edema, small volume ascites - Plan for Lasix once Grade 3 mucositis with poor PO intake and chemo-induced diarrhea improve ARLENE (obstructive sleep apnea) 10/23/2023 Assessment & Plan (10/23/2023 11:09 AM GOAT DRIVER): - CPAP QHS and naps Pancytopenia due to antineoplastic chemotherapy 10/22/2023 Assessment & Plan (10/22/2023 8:00 AM GOAT DRIVER): - Transfuse per BMT protocol Chemotherapy induced diarrhea 10/22/2023 Assessment & Plan (10/22/2023 8:02 AM GOAT DRIVER): - c. Diff negative - Imodium prn Mucositis due to chemotherapy 10/22/2023 Assessment & Plan (10/28/2023 10:50 AM GOAT DRIVER): - Grade 3, difficulty tolerating PO, requiring IV narcotics - CT CAP (10/25) - circumferential esophageal wall thickening involving the mid to distal esophagus - GI cocktail (10/23) - MMW, saline rinses - Changed meds to IV where able - Dilaudid OPERATIONS ADMINISTRATIVE ASSISTANT (10/24-10/28) --> Dilaudid IV prn Bacteremia 10/21/2023 Assessment & Plan (10/28/2023 4:32 PM GOAT DRIVER): - Patient's sample from cryo sample positive [...] protocol Assessment & Plan (10/24/2023 10:54 AM GOAT DRIVER): - 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 [...] 10/14/2023 Assessment & Plan (10/24/2023 10:34 AM GOAT DRIVER): - 2/2 MM - MRI (02/20/23) w/ L2 compression. - Oxycodone PRN (takes norc 10-325 at home) Hypertension, essential 10/14/2023 Assessment & Plan (11/26/2023 6:19 AM CDT): Continue Coreg, resume amlodipine At discharge pt will resume home lasix Assessment & Plan (11/24/2023 4:57 AM CDT): Continue Coreg, hold amlodipine pending blood pressure trend Assessment & Plan (10/28/2023 10:51 AM GOAT DRIVER): - Coreg, Amlodipine Autologous donor of stem cells 09/20/2023 Multiple myeloma not having achieved remission 1 10/30/2022 Cancer Staging:Clinical stage from 02/19/2023:RISS Stage II(Stnj-4-zivzbuxwpteby (mg/L): 3.9, Albumin (g/dL): 2.2, ISS: Stage [...] Tobacco: Never Tobacco Cessation:Counseling Given: Not Answered [facility] Utilities Answer Date Recorded In the past 12 months has th e [place], gas, oil, or water [employer] threatened to shut off services in your home? No 10/28/2023 Social Connection and Isolation Panel Answer Date Recorded In a typical week, how many times do you talk on the phone with family, friends, or neighbors? More than three times a week 10/28/2023 How often do you get togethe r with friends or relatives? Twice a week 10/28/2023 How often do you attend [facility] or yazidi services? 1 to 4 times per year 10/28/2023 Do you belong to any clubs o r organizations such as voodoo groups, unions, fraternal or athletic groups, or [...] place to sleep or slept in a long-term (including now)? No 10/28/2023 Personal Safety Answer Date Recorded Have you ever been in or are you currently in a harmful physical or emotional relationship or is someone making you feel afraid or unsafe? Denies 11/23/2023 Comments No Sex and Gender Information Value Date Recorded Sex Assigned at Not on file Legal Sex Female 7:44 PM GOAT DRIVER Gender Identity Not on file Sexual Orientation [...] Body Mass Index 32.02 11/23/2023 9:49 PM GOAT DRIVER Plan of Treatment Health Maintenance Due Date [...] left breast. Rusty Pederson M.D., md/:12/06/2016 09:27:19 Carpet Cleaning Technician: Dorothy Coley RT(R)(M), [facility] letter sent: Additional Imaging Reading location: BI-RADS: [...] made to exam dated: 12/28/2014 mammogram - [facility]. BREAST TISSUE: There are scattered areas [...] is made to exam dated: 12/28/2014 mammogram -[facility]. BREAST TISSUE: There are scattered areas [...] left breast. Rusty Pederson M.D., md/:12/06/2016 09:27:19 Carpet Cleaning Technician: Dorothy MESSER)(Judy), [facility] letter sent: Additional Imaging Reading location: BI-RADS: 0 Additional Imaging Evaluation Needed [EOD] Jeanette TREVIZO IMG MAMMO PROCEDURES Final Resul t from Last 3 Months or Most Recently Relevant to Health Maintenance Insurance [employer] [facility] MEDICARE ADVANTAGE IDPA Advance Directives For more information, please contact: [phone] * Full Code (Latest Code Status on File) Date Activated Date Inactivated Comments 11/23/2023 10:01 PM 11/25/2023 10:44 PM * Full Code Date Activated Date Inactivated Comments 10/14/2023 3:46 PM 11/04/2023 9:05 PM * Full Code Date Activated Date Inactivated Comments 10/08/2023 12:50 PM 10/09/2023 5:25 AM Care Teams Reception Interviewer Relationship Specialty Start Date End Date Jeanette Mello PA PCP - General 08/23/20 Edwin Feldman MD [address] [address] Referring Physician Hematology 07/30/23
--- OUTSIDE RECORDS SUMMARY | 2025-05-19 16:03 | XMS_ITS ---
Author Organization [facility] Address [address] [place] [address] Phone Care Team Providers Care Customer Accounts Advisor Name Role Phone Unavailable Primary Care Provider [...]
--- OUTSIDE RECORDS SUMMARY | 2025-05-19 16:03 | XMS_ITS | Clinical Summary ---
Author Organization [facility] Address [address] [place] [address] Phone Care Team Providers Care [place] Bailiff Name Role Phone Unavailable Primary Care Provider [...] CDT 023 Active naloxone (NARCAN) 4 mg/spray [place], Non-Aerosol EMERGENCY USE ONLY: Administer 1 spray [...] Encounters Date Type Department Care Team Description 05/19/2025 Orders Only [facility] Oncology and Hematology - [place] [address] [place] [address] Edwin Feldman MD 05/17/2025 Orders Only [facility] Oncology and Hematology - [place] [address] [place] [address] Edwin Feldman MD Multiple myeloma not having achieved remission (CMS/HCC) 05/06/2025 Orders Only [facility] Oncology and Hematology - [place] [address] [place] [id number] Edwin Feldman MD 05/03/2025 Orders Only [facility] Oncology and Hematology - [place] [address] [place] [address] Edwin Feldman MD Multiple myeloma not having achieved remission (CMS/HCC) 04/27/2025 External Device Data STL ABSTRACTION Provider, Abstract 04/22/2025 Refill [facility] Oncology and Hematology - [place] [address] [place] [address] Edwin Feldman MD Multiple myeloma not having achieved remission (CMS/HCC) 04/22/2025 Orders Only [facility] Oncology and Hematology - [place] [address] [place] [address] Edwin Feldman MD 04/21/2025 Orders Only [facility] Oncology and Hematology - [place] [address] [place] [address] Edwin Feldman MD 04/21/2025 External Device Data STL ABSTRACTION Provider, Abstract 04/19/2025 Orders Only [facility] Oncology and Hematology - [place] [address] [place] [address] Edwin Feldman MD Multiple myeloma not having achieved remission (CMS/HCC) 04/13/2025 Abstract [facility] Oncology and Hematology - [place] [address] [place] [phone] Edwin Feldman MD 04/08/2025 Orders Only [facility] Oncology and Hematology - [place] [address] [place] [phone] Edwin Feldman MD 04/07/2025 Orders Only [facility] Oncology and Hematology - [place] [address] Edwin Feldman MD 04/05/2025 Orders Only [facility] Oncology and Hematology - [place] [address] [place] [phone] Edwin Feldman MD Multiple myeloma not having achieved remission (CMS/HCC) 03/31/2025 External Device Data STL ABSTRACTION Provider, Abstract 03/30/2025 External Device Data STL ABSTRACTION Provider, Abstract 03/26/2025 Refill [facility] Oncology and Hematology [facility] [address] [place] [phone] Edwin Feldman MD Multiple myeloma not having achieved remission (CMS/HCC) 03/22/2025 Orders Only [facility] Oncology and Hematology [facility] [address] [place] [id number] Edwin Feldman MD Multiple myeloma not having achieved remission (CMS/HCC) 03/11/2025 Orders Only [facility] Oncology and Hematology - [place] [address] [place] [phone] Edwin Feldman MD 03/08/2025 Orders Only [facility] Oncology and Hematology [facility] [address] [place] [id number] Edwin Feldman MD Multiple myeloma not having achieved remission (CMS/HCC) 03/02/2025 9:45 AM CDT Office Visit [facility] Oncology and Hematology [facility] [address] Edwin Feldman MD Multiple myeloma not having achieved remission (CMS/HCC) (Primary Dx) 03/02/2025 External Device Data STL ABSTRACTION Provider, Abstract 03/01/2025 Orders Only [facility] Oncology and Hematology - [place] [address] [place] [phone] Edwin Feldman MD 02/25/2025 Refill [facility] Oncology and Hematology - [place] [address] [place] [phone] Edwin Feldman MD Multiple myeloma not having achieved remission (CMS/HCC) 02/25/2025 Orders Only [facility] Oncology and Hematology - [place] [address] [place] [phone] Edwin Feldman MD 02/24/2025 Orders Only [facility] Oncology and Hematology - [place] [address] [place] [phone] Edwin Feldman MD 02/22/2025 Orders Only [facility] Oncology and Hematology - [place] [address] [place] [phone] Edwin Feldman MD Multiple myeloma not having [...] [facility] Oncology and Hematology - [place] [address] [facility] [address] [place] [address] Edwin Feldman MD [address] [facility] [address] [place] [address] Health Maintenance Due Date Last [...] PCV21) 10/15/2016 08/20/2016 BREAST CANCER SCREENING 01/18/2018 01/19/20 17, 11/30/2016, 11/30/2016 OSTEOPOROSIS SCREENING 2020 DIABETES HBA1C Q 6 MONTHS 03/24/2024 09/24/2023 Medicare Ad[place]age ([place]) Preventative Visit/Annual Wellness Visit 09/16/2024 INFLUENZA VACCINE (#1) 2025 , 07/16/2018, 05/31/2017, Additional history exists COLORECTAL SCREENING 10/21/2028 10/21/2018 Colorectal Cancer Screening 10/21/2028 Procedures Procedure Name Priority Date/Time Associated Diagnosis Comments BASIC METABOLIC PANEL Routine 05/19/2025 3:22 PM CDT COMPREHENSIVE METABOLIC PANEL Routine 05/19/2025 3:21 PM CDT BASIC METABOLIC PANEL Routine 2025 11:03 AM [...] 3 Months Results * BASIC METABOLIC PANEL (05/19/2025 3:22 PM CDT) Only the most recent of6 resultswithin the time period is included. Blood us Edwin Feldman MD CHEMISTRY ORDERABLES Final Resu lt * COMPREHENSIVE METABOLIC PANEL (05/19/2025 3:21 PM CDT) Only the most recent of5 resultswithin the time period is included. Blood Result [facility] us Edwin Feldman MD CHEMISTRY ORDERABLES Final Resu lt * CBC WITH AUTODIFFERENTIAL (04/21/2025 1:00 PM CDT) Only the most recent of2 resultswithin the time period is included. Blood Result [facility] us Edwin Feldman MD HEMATOLOGY ORDERABLES Final Res ult * CBC WITH DIFFERENTIAL (04/07/2025 2:23 PM CDT) Only the most recent of2 resultswithin the time period is included. Blood us Edwin Feldman MD HEMATOLOGY ORDERABLES Final Res ult * PROTEIN ELECTROPHORESIS, CSF (02/24/2025 3:34 PM CDT) Cerebrospinal fluid CEREBROSPINAL FLUID / Unknown Result [facility] us Edwin Feldman MD BODY FLUIDS AND STOOLS Final Re sult * KAPPA/LAMBDA, FREE LIGHT CHAINS (02/24/2025 1:51 PM CDT) Blood us Edwin Feldman MD CHEMISTRY ORDERABLES Final Resu lt from Last 3 Months Insurance MEDICAID [place] [facility] [id number] RX [employer] RX Member Subscriber Plan / Payer (Ef fective 2021-Present) Name:Marion Zayas Relation to Subscriber:Self Name:Marion Zayas Payer ID:Not on file Group ID:[id number] Type:RX Medicare Part D Address: [address] [facility] [id number] MEDICAID [place] Advance Directives For more information, please contact: [phone] * Full Code (Latest Code Status on File) Date Activated Date Inactivated Comments 02/18/2023 4:44 PM 03/08/2023 7:37 PM
--- OUTSIDE RECORDS SUMMARY | 2025-05-19 16:03 | XMS_ITS | Clinical Summary ---
Author Organization [facility] Address Formerly [facility] [place] [address] Care Team Providers Care Prevention Coordinator Name Role Phone Jeanette Mello PA-C Primary Care Provider [phone] Allergies No known active allergies Medications amlodipine 10 MG tablet TK 1 T PO QD 3 09/28/2018 Active ranitidine 150 MG tablet TK 1 T PO BID 6 09/22/2018 Activ e sertraline 50 MG tablet TK 1 T PO QD 0 09/29/2018 Active gabapentin 300 MG capsule TK 1 C PO TID 3 09/28/2018 Acti ve lisinopril 40 MG tablet TK 1 T PO QD 1 01/23/2018 Active baclofen 10 MG tablet TK 1 T PO TID PRN 3 09/28/2018 Active carvedilol 12.5 MG tablet TK 1 T PO BID 3 09/22/2018 Activ e atorvastatin 10 MG tablet TK 1 T PO QD 6 09/01/2018 Active traMADol 50 MG tablet 3 08/21/2018 Active VENTOLIN HFA 108 (90 Base) MCG/ACT inhaler INL 2 PFS PO Q 6 H 5 08/22/2018 Active MAPAP 325 MG tablet TK 2 TS PO Q 8 H PRN 5 01/05/2018 Active furosemide 20 MG tablet TK 1 T PO QD PRN 1 09/26/2018 Active loratadine 5 MG Tab tablet Take by mouth daily. Active PEG 4852-OGc-QlCpk- NaCl-NaSulf (PEG 3350/ELECTROLYT ES) 240 g Recon Soln DRINK SS OF JUG STARTING AT 4PM THE DAY BEFORE THE TEST. START SECOND HALF THE MORNING OF TEST. MUST COMPLETE OVER 2 HOURS FOR EACH DOSE. 0 10/11/2018 Active Family History Medical History Relation Comments Heart Disease Father Hypertension Mother Relation Status Comments Father Mother Social History Tobacco Use Types Packs/Day Years Used Date Smoking Tobacco: Every Day Cigarettes Smokeless Tobacco: Never Alcohol Use Standard Drinks/Week Comments No 0 (1 standard drink = 0.6 oz pur e alcohol) rarely AUDIT-C Answer Date Recorded Frequency of Alcohol Consumption Never 10/20/2018 Average Number of Drinks Not on file 019 Frequency of Binge Drinking Not on file 12/2018 Comments No Sex and Gender Information Value Date Recorded Sex Assigned at Not on file Legal Sex Female 10:54 AM ACTUARIAL DIRECTOR Gender Identity Not on file Sexual Orientation Not on file Last Filed Vital Signs Vital Sign Reading Time Taken Comments Blood Pressure 143/90 10/21/2018 1:40 PM ACTUARIAL DIRECTOR Pulse 74 10/21/2018 1:40 PM ACTUARIAL DIRECTOR Temperature 36.6 C (97.8 F) 10/21/2018 1:17 PM ACTUARIAL DIRECTOR Respiratory Rate 18 10/21/2018 1:40 PM ACTUARIAL DIRECTOR Oxygen Saturation 94% 10/21/2018 1:40 PM ACTUARIAL DIRECTOR Inhaled Oxygen Concentration - - Weight 100.2 kg (221 lb) 10/21/2018 10:45 AM ACTUARIAL DIRECTOR Height 167.6 cm (5' 6) 10/21/2018 10:45 AM ACTUARIAL DIRECTOR Body Mass Index 35.67 10/21/2018 10:45 AM ACTUARIAL DIRECTOR Plan of Treatment Health Maintenance Due Date Last Done Comments Hepatitis C 1973 DTaP, Tdap and Td Vaccines ( 1 - Tdap) 1974 Pneumococcal Vaccine: 50+ Ye ars (1 of 2 - PCV) 1974 Mammogram Screening 1995 Zoster Vaccines (1 of 2) 2005 Annual Medicare Wellness Visit 2020 Dexa Scan (General) 2020 COVID-19 Vaccine ( - 2023-2 5 season) 2024 Colorectal Cancer Screening Colonoscopy (10 Years) 10/21/2028 10/21/2018 RSV Immunization or 60+ Years (1 - 1-dose 75+ series) 2030 Meningococcal B Vaccine Aged Out No l onger eligible based on patient's age to complete this topic Meningococcal Vaccine Aged Out No zuleika davion eligible based on patient's age to complete this topic RSV Immunizations Under 20 Months Aged Out No longer eligible based on patient's age to complete this topic Procedures Procedure Name Priority Date/Time Associated Diagnosis Comments COLONOSCOPY Routine 10/21/2018 10:38 AM ACTUARIAL DIRECTOR from Last 3 Months or Most Recently Relevant to Health Maintenance Insurance [facility] Care Teams Prevention Coordinator Relationship Specialty Start Date End Date Jeanette Mello PA-C PCP - General FAMILY PRACTICE 10/21/18
== END 2025-05-19 16:22 | disposition home or self-care (01) ==
PROVIDERS: Emergency Provider Emergency Medicine
DX: J18.9 Pneumonia, unspecified organism (principal); Z20.822 Contact with and (suspected) exposure to COVID-19; J44.9 Chronic obstructive pulmonary disease, unspecified; I25.2 Old myocardial infarction; I10 Essential (primary) hypertension; E78.5 Hyperlipidemia, unspecified; K21.9 Gastro-esophageal reflux disease without esophagitis; G47.33 Obstructive sleep apnea (adult) (pediatric); Z87.891 Personal history of nicotine dependence; Z79.899 Other long term (current) drug therapy; R00.1 Bradycardia, unspecified; I45.2 Bifascicular block
CPT/HCPCS: 36415; 71046; 80047; 80053; 83605; 83690; 83735; 83880; 84484; 85025; 85610; 85730; 87637; 87651; 93005; 99212; 99284; G0463